=== PATIENT | male | born 1945 | race Caucasian/White ===

== ENCOUNTER → 2020-07-22 19:49 | Outpatient (ROUT) | payer BC, SELFPAY ==
[2020-07-22 20:31] LABS: Alanine Aminotransferase 29 IU/L (<50); Albumin 4.3 g/dL (3.5-5.0); Albumin Globulin Ratio 1.1 (1.0-2.8); Alkaline Phosphatase 163 U/L (38-126); Aspartate Aminotransferase 29 IU/L (17-59); BUN Creatinine Ratio 22.2 (6-22); Bilirubin Total 0.5 mg/dL (0.2-1.3); Blood Urea Nitrogen 14 mg/dL (9-20); Calcium 9.8 mg/dL (8.4-10.2); Carbon Dioxide 32 mmol/L (22-32); Chloride 99 mmol/L (98-107); Estimated Glomerular Filt Rate > 60.0 mL/min (>60); Globulin 3.9 g/dL (1.7-4.1); Glucose 91 mg/dL (80-110); HEMOLYSIS < 15 (0-50); Potassium 3.9 mmol/L (3.4-5.1); Sodium 139 mmol/L (137-145); Total Protein 8.2 g/dL (6.3-8.2)
[2020-07-22 20:37] LABS: Creatinine Urine Random 63.4 mg/dL; Sodium Urine Random 99 mmol/L (30-90)
[2020-07-22 20:42] LABS: Microalbumi Creatinin Ratio Ur 17.3 ug/mg CR (<30); Microalbumin Urine Random 1.1 mg/dL (0-1.6)
[2020-07-22 22:23] LABS: Hemoglobin A1C% w Est Avg Glu 8.2 % (4.0-6.0)
== END ==
PROVIDERS: Visit Provider Internal Medicine
DX: E11.9 Type 2 diabetes mellitus without complications (principal); E87.1 Hypo-osmolality and hyponatremia
CPT/HCPCS: 80053; 82043; 82570; 83036; 84300; 84681

== ENCOUNTER → 2020-12-02 18:46 | Outpatient (ROUT) | payer BC, SELFPAY ==
[2020-12-02 19:24] LABS: Hemoglobin A1C% w Est Avg Glu 6.1 % (4.0-6.0)
== END ==
PROVIDERS: Visit Provider Internal Medicine
DX: E11.9 Type 2 diabetes mellitus without complications (principal)
CPT/HCPCS: 83036

== ENCOUNTER 2025-04-10 08:31 | Inpatient (IN) | payer MEDICARE, BC, SELFPAY ==
[2025-04-10] VITALS (11 sets, daily range): BP systolic 128–151; BP diastolic 66–84; PULSE 91–113; RESP 9–20; TEMP 36.4–36.6; O2SAT 93–99; BMI 22.9
--- NOTE | 2025-04-10 08:41 | DI.RAD.S_ITS ---
PROCEDURE: XR HIP W PEL IF DONE LT 2V INDICATIONS: hip fracture suspected TECHNIQUE: AP pelvis with lateral view(s) of the left hip(s). COMPARISON: None. FINDINGS: Bones: Left femoral neck fracture with varus angulation. Pelvic ring appears intact. No suspicious bony lesions. Soft tissues: The visualized bowel gas pattern is normal. No suspicious soft tissue calcifications. IMPRESSION: Left femoral neck fracture with varus angulation. Dictated by: Juan F Wu M.D. on 04/10/2025 at 9:21 Approved by: Juan F Wu M.D. on 04/10/2025 at 9:21
--- NOTE | 2025-04-10 08:41 | DI.RAD.S_ITS ---
PROCEDURE: XR CHEST 1V INDICATIONS: preop TECHNIQUE: One view of the chest was acquired. COMPARISON: None. FINDINGS: Surgical changes and devices: CABG. Lungs and pleura: Minimal left basilar atelectasis versus scarring. No pleural effusions or pneumothorax. Mediastinum: Mediastinal contours appear normal. Heart size is normal. Bones and chest wall: No suspicious bony lesions. Overlying soft tissues appear unremarkable. IMPRESSION: Minimal left basilar atelectasis versus scarring. Dictated by: Juan F Wu M.D. on 04/10/2025 at 9:20 Approved by: Juan F Wu M.D. on 04/10/2025 at 9:21
--- NOTE | 2025-04-10 08:44 | ED.FALL ---
HPI - Fall General Chief Complaint: Trauma Stated Complaint: GLF, r/o L hip fx Time Seen by Provider: 04/10/25 08:35 History of Present Illness HPI Narrative: This is a 79-year-old man brought in by ambulance history is obtained from the patient and from EMS. Patient reportedly had a ground level fall in his driveway last night with subsequent left hip and left elbow pain. States that he was able to get up and back into the home with the assistance of his where he stayed overnight and then his called EMS in the morning because he had pain with movement of his left hip and could not ambulate. EMS noted shortening of the left lower extremity. The patient is not anticoagulated, he has past medical history including type 2 diabetes hypertension coronary artery disease and elevated cholesterol. He denies chest pain shortness of breath fevers or head injury. He does not have back pain. Past Surgical history includes coronary artery bypass grafting and cholecystectomy as well as hernia repair. Related Data Home Medications ?Medication ?Instructions ?Recorded ?Confirmed aspirin 81 mg tablet,delayed 81 mg PO DAILY 04/10/25 04/10/25 release (Daniel Low Dose Aspirin) atorvastatin 80 mg tablet 80 mg PO QPM 04/10/25 04/10/25 empagliflozin 25 mg-linagliptin 5 1 tab PO DAILY 04/10/25 04/10/25 mg tablet (Glyxambi) ferrous sulfate 28 mg iron tablet 18 mg PO 04/10/25 ketoconazole 2 % shampoo topical 04/10/25 ketoconazole 2 % topical cream applic topical DAILY 04/10/25 lisinopril 10 mg tablet 10 mg PO DAILY 04/10/25 04/10/25 metoclopramide HCl 10 mg tablet 10 mg PO DAILY 04/10/25 04/10/25 (Reglan) metoprolol succinate 25 mg 25 mg PO DAILY 04/10/25 04/10/25 tablet,extended release 24 hr pantoprazole 20 mg tablet,delayed 20 mg PO DAILY 04/10/25 04/10/25 release Allergies Allergy/AdvReac Type Severity Reaction Status Date / Time diazepam (From Valium) AdvReac Verified 04/10/25 08:46 latex AdvReac Verified 04/10/25 08:46 Exam Initial Vital Signs Initial Vital Signs: Vital Signs Temperature 97.5 F L 04/10/25 08:40 Pulse Rate 103 H 04/10/25 08:40 Respiratory Rate 20 04/10/25 08:40 Blood Pressure 136/78 04/10/25 08:40 Pulse Oximetry 97 04/10/25 08:40 Oxygen Delivery Method Room Air 04/10/25 08:40 vital signs are reviewed Const General: cooperative and No acute distress [facility] Head: normocephalic and atraumatic Face and sinus: face symmetric Mouth: moist mucous membranes Eyes Pupils: PERRL EOM: EOM intact bilaterally Neck Neck: supple Chest Chest: normal inspection of the chest Resp Effort & Inspection: normal respiratory effort and able to speak in complete sentences Auscultation: clear to auscultation bilaterally Cardio Rate: regular rate Rhythm: regular rhythm Heart Sounds: no murmurs GI Palpation: soft Neuro General: patient alert and patient oriented x3 Extrem Other: Shortening of the left lower extremity. Pulses are intact in the left foot. Has pain with any movement of the left lower extremity. There are abrasions to the left elbow, no deformity and full active range of motion. Course Course Course Narrative: Case discussed with hospitalist, Dr. Stone, admission is accepted at 10:05 a.m. orthopedics consult is pending Orders Ordered: ED Orders 04/10/25 08:41 XR chest 1V Stat XR hip w pel LT 2V Stat EKG-12 Lead Stat 04/10/25 08:47 XR elbow LT min 3V Stat 04/10/25 09:30 CBC Auto Diff [Complete Blood Count AUTO DIFF] Stat CMP [Comprehensive Metabolic Panel] Stat 04/10/25 09:40 Consult to Orthopedic Surgery Stat Acetaminophen (Acetaminophen 325 Mg Tablet) 650 mg PO Q6H PRN PRN Reason: Fever/Mild Pain (1-3) Aspirin (Aspirin Ec 81 Mg Tablet) 81 mg PO DAILY JEISON Atorvastatin Calcium (Atorvastatin 20 Mg Tablet) 80 mg PO QPM [facility] Heparin Sodium (Porcine) (Heparin 5,000 Unit/Ml Vial) 5,000 unit SUBCUT BID [facility] Hydromorphone HCl (Hydromorphone Hcl 0.5 Mg/0.5 Ml Syringe) 0.5 mg IV Q2H PRN PRN Reason: Pain, Severe (7-10) Sodium Chloride (Normal Saline 0.9%) 1,000 mls @ 100 mls/hr IV CONT JEISON Lisinopril (Lisinopril 10 Mg Tablet) 10 mg PO DAILY [facility] Metoprolol Succinate (Metoprolol Er 25 Mg Tablet) 25 mg PO DAILY [facility] Naloxone HCl (Naloxone 0.4 Mg/Ml Vial) 0.2 mg IV Q2MIN PRN PRN Reason: Opiate Reversal Ondansetron HCl (Ondansetron 4 Mg/2 Ml Inj) 4 mg IV Q8HR PRN PRN Reason: Nausea And Vomiting Pantoprazole Sodium (Pantoprazole Dr 20 Mg Tablet) 20 mg PO DAILY [facility] Discontinued Medications Hydromorphone HCl (Hydromorphone 1 Mg Inj) 0.5 mg IV NOW ONE Stop: 04/10/25 08:42 Last Admin: 04/10/25 09:48 Dose: 0.5 mg Documented By: CTS Ondansetron HCl (Ondansetron 4 Mg/2 Ml Inj) 4 mg IV NOW ONE Stop: 04/10/25 08:42 Last Admin: 04/10/25 09:48 Dose: 4 mg Documented By: JAIMIE Consultations Consultation #2: Discussed with orthopedics, Dr. Mcduffie's, we will consult Vital Signs Vital signs: Vital Signs - 8 hr 04/10/25 08:40 04/10/25 08:41 04/10/25 09:00 Temperature 97.5 F L Pulse Rate 103 H 103 H 97 H Respiratory Rate 20 17 Blood Pressure 136/78 Pulse Oximetry 97 98 93 Oxygen Delivery Method Room Air 04/10/25 09:30 04/10/25 10:00 Temperature Pulse Rate 99 H 91 H Respiratory Rate 16 11 L Blood Pressure Pulse Oximetry 95 99 Oxygen Delivery Method MDM - Fall Lab Data 04/10/25 09:30 04/10/25 09:30 Labs: Lab Results 04/10/25 Range/Units 09:30 WBC 14.9 H (4.5-11.0) X10^3/uL RBC 4.90 (4.5-5.9) X10^6/uL Hgb 14.2 (13.5-17.5) g/dL Hct 42.1 (41-53) % MCV 86.0 (80-100) fL MCH 28.9 (26-34) PG MCHC 33.7 (30-36) % RDW 14.5 (11.6-14.8) % Plt Count 228 (150-400) X10^3/uL Neut % (Auto) 86.7 H (50-75) % Lymph % (Auto) 7.4 L (25-40) % [place] % (Auto) 5.4 (3-14) % Eos % (Auto) 0.2 L (2-4) % Baso % (Auto) 0.3 (0-2) % Neut # (Auto) 38771 H (5006-7610) /uL Lymph # (Auto) 1100 (0996-8065) /uL [place] # (Auto) 800 (0-900) /uL Eos # (Auto) 0 (0-450) /uL Baso # (Auto) 0 (0-100) /uL Sodium 139 (137-145) mmol/L Potassium 4.3 (3.4-5.1) mmol/L Chloride 107 (98-107) mmol/L Carbon Dioxide 23 (22-32) mmol/L BUN 15 (9-20) mg/dL Creatinine 0.92 (0.66-1.25) mg/dL Estimated GFR > 60 (>60) mL/min BUN/Creatinine Ratio 16.3 (6-22) Glucose 157 H (70-99) mg/dL Calcium 9.2 (8.4-10.2) mg/dL Total Bilirubin 0.7 (0.2-1.3) mg/dL AST 32 (17-59) IU/L ALT 38 (<50) IU/L Alkaline Phosphatase 158 H (38-126) U/L Total Protein 7.7 (6.3-8.2) g/dL Albumin 4.1 (3.5-5.0) g/dL Globulin 3.6 (1.7-4.1) g/dL Albumin/Globulin Ratio 1.1 (1.0-2.8) Imaging Data Extremity x-ray #1: My Impression: Independently reviewed x-ray of left hip, no acute finding Radiologist's Impression: Radiology report reviewed, no acute Chest x-ray: My Impression: Independently reviewed chest x-ray, postoperative changes no acute findings Radiologist's Impression: Reviewed radiology report, minimal atelectasis at left base no acute findings AP pelvis and left hip: My Impression: AP pelvis and left hip x-ray shows left hip fracture and femoral neck Radiologist's Impression: [address] [address] XRay Report Signed Patient: Gonzalo Sullivan MR#: [id number] : 1945 Acct:[id number] Age/Sex: 79 / M Date of Service: 04/10/25 Loc: ED Accession Number: [id number] Procedure: XR hip w pel LT 2V Ordering Provider: Haris Ron MD PROCEDURE: XR HIP W PEL IF DONE LT 2V INDICATIONS: hip fracture suspected TECHNIQUE: AP pelvis with lateral view(s) of the left hip(s). COMPARISON: None. FINDINGS: Bones: Left femoral neck fracture with varus angulation. Pelvic ring appears intact. No suspicious bony lesions. Soft tissues: The visualized bowel gas pattern is normal. No suspicious soft tissue calcifications. IMPRESSION: Left femoral neck fracture with varus angulation. Dictated by: Juan F Wu M.D. on 04/10/2025 at 9:21 Approved by: Juan F Wu M.D. on 04/10/2025 at 9:21 ECG Data Attestation: I personally reviewed and interpreted this ECG as follows: (Normal sinus rhythm at [address] segment changes right bundle-branch block and left anterior fascicular block) Discharge Plan Departure Patient Disposition: Admitted As Inpatient Clinical Impression: Closed fracture of left hip Qualifiers: Encounter type: initial encounter Qualified Code(s): S72.002A - Fracture of unspecified part of neck of left femur, initial encounter for closed fracture Admit Date/Time: 04/10/25 10:02 Admit Provider: Suman Stone
--- NOTE | 2025-04-10 08:47 | DI.RAD.S_ITS ---
PROCEDURE: XR ELBOW LT MIN 3V INDICATIONS: elbow injury TECHNIQUE: 3 views of the elbow were acquired. COMPARISON: None. FINDINGS: Bones: No fractures or dislocations. No suspicious bony lesions. Soft tissues: No elbow joint effusion. No suspicious soft tissue calcifications. IMPRESSION: No acute bony abnormality or significant joint effusion. Dictated by: Juan F Wu M.D. on 04/10/2025 at 9:21 Approved by: Juan F Wu M.D. on 04/10/2025 at 9:22
--- NOTE | 2025-04-10 08:51 | EKG_ITS ---
[id number] [address] Test Date: 2025-04-10 Pat Name: Gonzalo Sullivan Department: Room: Gender: Male Burglar Alarm Inspector: TINARISTIDES : 1945 Requested By: Order Number: [id number] Reading MD: Suman Stone Measurements Intervals [place] Rate: 98 P: 71 NH: 188 QRS: -60 QRSD: 136 T: 67 QT: 380 QTc: 485 Interpretive Statements Normal sinus rhythm Right bundle branch block Left anterior fascicular block Bifascicular block Minimal voltage criteria for LVH, may be normal variant ( R in aVL ) Electronically Signed On 04-10-2025 15:06:20 PDT by Suman Stone
[2025-04-10 09:46] LABS: Add Manual Diff / Slide Review NO; Hematocrit 42.1 % (41-53); Hemoglobin 14.2 g/dL (13.5-17.5); Lymphocytes Absolute Auto 1100 /uL (1100-4500); Mean Corpuscular HGB Conc 33.7 % (30-36); Mean Corpuscular Hemoglobin 28.9 PG (26-34); Mean Corpuscular Volume 86.0 fL (80-100); Platelet Count 228 X10^3/uL (150-400)
[2025-04-10] MEDS: HYDROMORPHONE 1 MG INJ 0.5 MG IV (09:48)
[2025-04-10] MEDS: ONDANSETRON 4 MG/2 ML INJ IV (09:48)
[2025-04-10 10:10] LABS: Alanine Aminotransferase 38 IU/L (<50); Albumin 4.1 g/dL (3.5-5.0); Albumin Globulin Ratio 1.1 (1.0-2.8); Alkaline Phosphatase 158 U/L (38-126); Blood Urea Nitrogen 15 mg/dL (9-20); Calcium 9.2 mg/dL (8.4-10.2); Carbon Dioxide 23 mmol/L (22-32); Chloride 107 mmol/L (98-107); Estimated Glomerular Filt Rate > 60 mL/min (>60); Globulin 3.6 g/dL (1.7-4.1); Glucose 157 mg/dL (70-99); HEMOLYSIS < 15 (0-50); Potassium 4.3 mmol/L (3.4-5.1); Sodium 139 mmol/L (137-145); Total Protein 7.7 g/dL (6.3-8.2)
--- NOTE | 2025-04-10 11:00 | PM.HP.1 ---
History of Present Illness History of Present Illness Chief complaint: GLF, r/o L hip fx Narrative: The patient was a very pleasant 79-year-old male who had a ground level fall while trying to clean the windows of his [employer] truck. He sustained a hip fracture after falling as well as left arm elbow and wrist abrasions. He had no LOC. He has reasonable pain control with Dilaudid, which is given in the ED. Orthopedics was contacted we will consult regarding operative repair and internal fixation of this fracture. He was doing well otherwise. His pain control is good. His past medical history is also notable for CAD with a history of CABG, diabetes type 2, hypertension, CAD, and hyperlipidemia. He was and lives in [place]. His is with him. ON LICENSE OF [facility] Social History household members: spouse Smoking Status: Former smoker alcohol intake: current Meds Home Medications and Allergies Home Medications ?Medication ?Instructions ?Recorded ?Confirmed ?Type aspirin 81 mg tablet,delayed 81 mg PO DAILY 04/10/25 04/10/25 History release (Daniel Low Dose Aspirin) atorvastatin 80 mg tablet 80 mg PO QPM 04/10/25 04/10/25 History empagliflozin 25 mg-linagliptin 5 1 tab PO DAILY 04/10/25 04/10/25 History mg tablet (Glyxambi) ferrous sulfate 28 mg iron tablet 18 mg PO DAILY 04/10/25 04/10/25 History ketoconazole 2 % shampoo 1 applic topical Q14D 04/10/25 04/10/25 History ketoconazole 2 % topical cream 1 applic topical DAILY 04/10/25 04/10/25 History lisinopril 10 mg tablet 10 mg PO DAILY 04/10/25 04/10/25 History metoclopramide HCl 10 mg tablet 10 mg PO DAILY 04/10/25 04/10/25 History (Reglan) metoprolol succinate 25 mg 25 mg PO DAILY 04/10/25 04/10/25 History tablet,extended release 24 hr pantoprazole 20 mg tablet,delayed 20 mg PO DAILY 04/10/25 04/10/25 History release Allergies Allergy/AdvReac Type Severity Reaction Status Date / Time diazepam (From Valium) AdvReac Verified 04/10/25 08:46 latex AdvReac Verified 04/10/25 08:46 Review of Systems Review of Systems Narrative: All else reviewed and otherwise unremarkable except as noted in the history and physical. Exam Vital Signs (past 8 hours): - 04/10/25 08:40 04/10/25 08:41 04/10/25 09:00 Temperature 97.5 F L Pulse Rate 103 H 103 H 97 H Respiratory Rate 20 17 Blood Pressure 136/78 Pulse Oximetry 97 98 93 Oxygen Delivery Method Room Air 04/10/25 09:30 04/10/25 10:00 Temperature Pulse Rate 99 H 91 H Respiratory Rate 16 11 L Blood Pressure Pulse Oximetry 95 99 Oxygen Delivery Method Oxygen Delivery Method Room Air Narrative Exam Narrative: NAD, alert and oriented, fluent speech, calm. Normocephalic skull, EOMI, anicteric sclera, symmetric pupils. Oropharynx unremarkable, no droop. Neck supple, midline trachea, no adenopathy. Lungs clear, normal rate and effort. Heart regular, no murmur gallop or rub. Abdomen is soft, non distended and non tender. Extremities are free of edema. Skin is free of rash or lesions. Joints are not swollen or deformed. Judgment appears to be normal. Objective ECG Impression: ntervals [place] Rate: 98 P: 71 CT: 188 QRS: -60 QRSD: 136 T: 67 QT: 380 QTc: 485 Interpretive Statements Normal sinus rhythm Right bundle branch block Left anterior fascicular block Bifascicular block Minimal voltage criteria for LVH, may be normal variant ( R in aVL ) Imaging Multiple studies:: Radiologist's impression: Elbow x-ray: No acute bony abnormality or significant joint effusion. Hip x-ray: Left femoral neck fracture with varus angulation. Chest x-ray: Minimal left basilar atelectasis versus scarring. Labs 04/10/25 09:30 04/10/25 09:30 Labs: Laboratory Results - last 24 hr 04/10/25 09:30 WBC 14.9 H RBC 4.90 Hgb 14.2 Hct 42.1 MCV 86.0 MCH 28.9 MCHC 33.7 RDW 14.5 Plt Count 228 Neut % (Auto) 86.7 H Lymph % (Auto) 7.4 L [place] % (Auto) 5.4 Eos % (Auto) 0.2 L Baso % (Auto) 0.3 Neut # (Auto) 53843 H Lymph # (Auto) 1100 [place] # (Auto) 800 Eos # (Auto) 0 Baso # (Auto) 0 Sodium 139 Potassium 4.3 Chloride 107 Carbon Dioxide 23 BUN 15 Creatinine 0.92 Estimated GFR > 60 BUN/Creatinine Ratio 16.3 Glucose 157 H Calcium 9.2 Total Bilirubin 0.7 AST 32 ALT 38 Alkaline Phosphatase 158 H Total Protein 7.7 Albumin 4.1 Globulin 3.6 Albumin/Globulin Ratio 1.1 Assessment & Plan Assessment & Plan narrative: 1. GLF 2. Left femoral neck fracture, present on admission and active. 3. Left elbow and wrist abrasions and contusions, stable. 4. CAD with history of CABG, stable. 5. DM 2, stable. 6. HLD, stable. PLAN: -NPO, IV fluids. -ortho consult for operative repair. Unsure if this will be today or tomorrow. -monitor glucose, correctional lispro. -continue usual medications. Anticipate at least 2 midnights in the hospital, supports inpatient status. He was full resuscitation, confirmed time of admission. is proxy decision maker. Time-Based Coding :: 35 min spent with patient and on the chart (including review of chart, obtaining history, exam, reviewing outside data, placing orders, documenting exam and treatment plan, and counseling patient) on 04/10. Quality MIPS - Admit I confirm the patient?s Advance Care Plan is present, Code status is documented, Surrogate decision maker is in patient?s record [If Yes, STOP here]: Yes MIPS - Meds 'Current medications' to include all prescriptions, [id number] products, herbals, cannabis/cannabidiol products, and vitamin/mineral/dietary (nutritional) supplements. I have utilized all available resources to obtain, update, or review the patient?s current medications. [If Yes, STOP here]: Yes
[2025-04-10] MEDS: SODIUM CHLORIDE 0.9% 1,000 ML 100 ML IV (12:17)
[2025-04-10] MEDS: OXYCODONE IR 5 MG TABLET PO (12:53)
--- NOTE | 2025-04-10 15:08 | PM.HP.IH.1 ---
History of Present Illness History of Present Illness Date Patient Seen: 04/10/25 Chief complaint: GLF, r/o L hip fx Narrative: 79yo M with past medical history of hypertension, hypercholesteremia, CAD with history of CABG and type 2 diabetes presents to the emergency department for the 1st time with regards to his left hip pain. He reports that yesterday he was working on his car when he tripped over a stool and landed on his hip. He initially had to crawl back to the house but he eventually was able to get up and ambulate that day. Early this morning he woke up to use the restroom and he again fell however this time he was unable to get up and ambulate. He was brought to the emergency department where they obtained radiographs that demonstrated his left femoral neck fracture. Denies new numbness and tingling however he has a history of mild peripheral neuropathy. He also injured his left elbow and wrist. Prior to this fall he denied any hip pain. He had a walking tolerance of approximately half a mile. He did not require any ambulatory aids. He has a significant 60 pack year history. [facility] Social History household members: spouse Smoking Status: Former smoker alcohol intake: current Meds Home Medications and Allergies Home Medications ?Medication ?Instructions ?Recorded ?Confirmed ?Type aspirin 81 mg tablet,delayed 81 mg PO DAILY 04/10/25 04/10/25 History release (Daniel Low Dose Aspirin) atorvastatin 80 mg tablet 80 mg PO QPM 04/10/25 04/10/25 History empagliflozin 25 mg-linagliptin 5 1 tab PO DAILY 04/10/25 04/10/25 History mg tablet (Glyxambi) ferrous sulfate 28 mg iron tablet 18 mg PO DAILY 04/10/25 04/10/25 History ketoconazole 2 % shampoo 1 applic topical Q14D 04/10/25 04/10/25 History ketoconazole 2 % topical cream 1 applic topical DAILY 04/10/25 04/10/25 History lisinopril 10 mg tablet 10 mg PO DAILY 04/10/25 04/10/25 History metoclopramide HCl 10 mg tablet 10 mg PO DAILY 04/10/25 04/10/25 History (Reglan) metoprolol succinate 25 mg 25 mg PO DAILY 04/10/25 04/10/25 History tablet,extended release 24 hr pantoprazole 20 mg tablet,delayed 20 mg PO DAILY 04/10/25 04/10/25 History release Allergies Allergy/AdvReac Type Severity Reaction Status Date / Time diazepam (From Valium) AdvReac Verified 04/10/25 08:46 latex AdvReac Verified 04/10/25 08:46 Exam Vital Signs (past 8 hours): - 04/10/25 08:40 04/10/25 08:41 04/10/25 09:00 Temperature 97.5 F L Pulse Rate 103 H 103 H 97 H Respiratory Rate 20 17 Blood Pressure 136/78 Pulse Oximetry 97 98 93 Oxygen Delivery Method Room Air Oxygen Flow Rate 04/10/25 09:30 04/10/25 10:00 04/10/25 10:30 Temperature Pulse Rate 99 H 91 H 93 H Respiratory Rate 16 11 L 9 L Blood Pressure Pulse Oximetry 95 99 99 Oxygen Delivery Method Oxygen Flow Rate 04/10/25 11:00 04/10/25 11:20 Temperature 97.5 F L Pulse Rate 94 H 99 H Respiratory Rate 9 L 16 Blood Pressure 151/84 H Pulse Oximetry 99 97 Oxygen Delivery Method Oxygen Flow Rate 2.5 Oxygen Delivery Method Room Air Oxygen Flow Rate 2.5 Narrative Exam Narrative: Left Hip: Inspection: No erythema, swelling, bruising, atrophy. ROM deferred due to known fracture Neurovascular exam: Fires ta/gc/ehl; SILT s/s/sp/dp/t, 2+ dp Imaging: Radiographs of the left hip on April 10, 2020 5th: Displaced femoral neck fracture. Mild degenerative changes in the acetabulum. Objective Labs 04/10/25 09:30 04/10/25 09:30 Labs: Laboratory Results - last 24 hr 04/10/25 04/10/25 09:30 11:41 WBC 14.9 H RBC 4.90 Hgb 14.2 Hct 42.1 MCV 86.0 MCH 28.9 MCHC 33.7 RDW 14.5 Plt Count 228 Neut % (Auto) 86.7 H Lymph % (Auto) 7.4 L [place] % (Auto) 5.4 Eos % (Auto) 0.2 L Baso % (Auto) 0.3 Neut # (Auto) 59000 H Lymph # (Auto) 1100 [place] # (Auto) 800 Eos # (Auto) 0 Baso # (Auto) 0 Sodium 139 Potassium 4.3 Chloride 107 Carbon Dioxide 23 BUN 15 Creatinine 0.92 Estimated GFR > 60 BUN/Creatinine Ratio 16.3 Glucose 157 H POC Whole Bld Glucose 133 H Calcium 9.2 Total Bilirubin 0.7 AST 32 ALT 38 Alkaline Phosphatase 158 H Total Protein 7.7 Albumin 4.1 Globulin 3.6 Albumin/Globulin Ratio 1.1 Assessment & Plan Assessment & Plan narrative: 79 yo M presents with history, physical exam and imaging findings consistent with a left femoral neck fracture. I had a long conversation with the patient and his about treatment options. I explained that we could address this fracture with either a hemiarthroplasty versus a total hip arthroplasty. We discussed the pluses and minuses of each and they elected for him to pursue a hemiarthroplasty. The risks, benefits and alternatives of the procedure were discussed with the patient to include bleeding, infection, damage to surrounding structures, ongoing pain, loss of range of motion, hip dislocation, need for additional surgeries and anesthesia risks such as heart attack, stroke and . Patient understood these risks and wanted move forward with the procedure. He was consented for operative fixation of the left hip femoral neck fracture. We plan to go to the operating room tomorrow. Admission to hospitalist -appreciate their assistance with this patient NPO at midnight Plan for OR on April 11, 2025 around 1:00 p.m. Nonweightbearing left lower extremity Start DVT prophylaxis the day after the surgery Clayton Juarez MD Ortho [phone] cell Time-Based Coding :: [TOTAL MINUTES] spent with patient and on the chart (including review of chart, obtaining history, exam, reviewing outside data, placing orders, documenting exam and treatment plan, and counseling patient) on [DATE]. [employer]EE [employer] Tender Helper Document charge(s): Yes
[2025-04-10] MEDS: OXYCODONE IR 10 MG TABLET PO (20:08)
[2025-04-11] VITALS (21 sets, daily range): BP systolic 95–153; BP diastolic 54–84; PULSE 91–116; RESP 11–25; TEMP 36.2–37.2; O2SAT 92–100; BMI 22.9
[2025-04-11] MEDS: OXYCODONE IR 10 MG TABLET PO (05:35)
[2025-04-11] MEDS: EMPAGLIFLOZIN LINAGLIPTIN 1 EACH PO (05:38)
[2025-04-11] MEDS: SODIUM CHLORIDE 0.9% 1,000 ML 100 ML IV (06:10)
[2025-04-11 06:23] LABS: Add Manual Diff / Slide Review NO; Hematocrit 42.6 % (41-53); Hemoglobin 14.1 g/dL (13.5-17.5); Lymphocytes Absolute Auto 1600 /uL (1100-4500); Mean Corpuscular HGB Conc 33.0 % (30-36); Mean Corpuscular Hemoglobin 29.1 PG (26-34); Mean Corpuscular Volume 88.0 fL (80-100); Platelet Count 211 X10^3/uL (150-400)
[2025-04-11 06:30] LABS: Blood Urea Nitrogen 15 mg/dL (9-20); Calcium 9.0 mg/dL (8.4-10.2); Carbon Dioxide 27 mmol/L (22-32); Chloride 106 mmol/L (98-107); Estimated Glomerular Filt Rate > 60 mL/min (>60); Glucose 117 mg/dL (70-99); HEMOLYSIS < 15 (0-50); Potassium 4.3 mmol/L (3.4-5.1); Sodium 140 mmol/L (137-145)
[2025-04-11] MEDS: HEPARIN 5,000 UNIT/ML VIAL 5000 UNIT SUBCUT ×2 (08:42→22:13)
[2025-04-11] MEDS: LACTATED RINGERS 1,000 ML 42 ML IV ×3 (13:25→21:12)
--- NOTE | 2025-04-11 13:37 | PM.PREOP ---
Pre-operative Note Interval Note History & Physical reviewed/Exam performed by Physician: Yes Changes to H&P: No
[2025-04-11] MEDS: FAMOTIDINE 20 MG/2 ML VIAL IV (13:40)
[2025-04-11] MEDS: CEFAZOLIN 2 GM/100 ML PREMIX 100 ML IV (13:50)
--- NOTE | 2025-04-11 14:13 | CM.DANOTE ---
Initial DCP Assessment Visit Note Reviewed EMR and team rounds for pt's medical status and updates. This ORDER EXPEDITER was unable to meet with pt at bedside due to pt being in surgery at the time of this visit. Pt lives modified ind. in his own home with his spouse in [place]. Pt will likely need SNF rehab at time of d/c, PT/OT evals and recs are pending. Will send referral and coordinate for SNF at d/c once pt has been further evaluated after his surgery. Payor: Medicare PCP: Dr. Juarez Attending: Dr. Roy Pt is a 79 year-old M who presented to the ED via EMS yesterday following a GLF in his drivewaythe day before. He was able to get back into the house that evening, however by yesterday morning he woke up and was unable to ambulate. X-ray of his hip in the ED showed a L-hip fracture. Ortho was consulted, and the plan was made to admit and complete surgery (today). DCP will continue to monitor for final recs and any further evolving needs prior to d/c. Discharge Planning/Care Management CM Discharge Assessment Start: 04/10/25 10:06 Freq: Status: Active Protocol: Document 04/11/25 14:08 DPL (Rec: 04/11/25 14:11 DPL [email or web address]) Discharge Planning Assessment Assigned Discharge CHEY Darden Intelligence Agent Advance Directives? No History Provided By Medical Record Expected Length of 3 Stay Has Patient been No admitted in last 30 days? Prior Living House Arrangements Household Members spouse Comment Information not available at time of this assessment. Patient/Family [facility] Facility Preference Barriers to No Discharge Discharge Plan [facility] Facility Transportation Facility Arrangement Referrals Initiated [facility] If patient plan is No SNF: Has PASSR been completed? Has Agency SNF been No contacted Whiteboard Updated Yes in Patient Room with name and ext. # of Electric Locomotive Firer/Fireman Review Status In Process Please Provide Date 04/11/25 Initial DC Assessment Was Performed
--- NOTE | 2025-04-11 14:44 | SUR.OPER ---
Lateral on padded OR bed. Gel axillary roll. Arms secured on padded armboard with pillow supporting top arm. Padded hip positioner braces x4 - anterior and posterior chest and pelvis. Additional gel pad used anterior pelvis. Gel pad under bottom leg from knee to foot and secured with tape over sheet. Dr. Juarez in room at time of positioning with Dr. Hall, all pressure points padded and position approved
[2025-04-11] MEDS: BUPIVACAINE 0.25% W/ EPI 30 ML VIAL 60 ML INJ (14:54)
[2025-04-11] MEDS: BUPIVACAINE LIPOSOME 266 MG/20 ML VIAL INJ (14:57)
--- NOTE | 2025-04-11 16:16 | PM.PN.1 ---
Subjective Subjective Date Patient Seen: 04/11/25 Interval history: Chief complaint: Left hip pain secondary to ground level fall with left hip fracture History of present illness: 04/10: 79-year-old male who had a ground level fall while trying to clean the windows of his [email or web address] truck. He sustained a hip fracture after falling as well as left arm elbow and wrist abrasions. He had no LOC. He has reasonable pain control with Dilaudid, which is given in the ED. Orthopedics was contacted we will consult regarding operative repair and internal fixation of this fracture. He was doing well otherwise. His pain control is good. His past medical history is also notable for CAD with a history of CABG, diabetes type 2, hypertension, CAD, and hyperlipidemia. He was and lives in [place]. His is with him. Hospital course: 04/11: No fevers or chills overnight no chest pains hip pain is satisfactory controlled prior to surgery there are no prohibitive conditions or findings for surgical repair Review of systems: No fever or chills No chest pain palpitations wheezing shortness for breath No nausea vomiting diarrhea No neurologic symptoms Physical exam: Elderly male alert cogent no acute distress HEENT unremarkable No JVD Heart rate and rhythm regular Abdomen nontender Good capillary refill and pulses of the feet bilaterally Assessment and plan: Ground level slip and fall with left femoral neck fracture Benefits far outweigh risks of going for surgery for both morbidity and survival Follow up with the PCP for possible osteopenia versus osteoporosis long-term management DVT prophylaxis per Orthopedic surgery stewardship Chronic coronary artery disease with history of CABG Continue all core measures following surgery Type 2 diabetes: Sliding scale insulin as needed for hypoglycemia while hospitalized DVT prophylaxis: Per Orthopedic surgery stewardship Code status: Full code blue 35 minutes were required in evaluation management of this patient including patient evaluation directly in person [id number] review of history and laboratory findings Exam Vital Signs (past 8 hours): - 04/11/25 08:30 04/11/25 10:45 04/11/25 12:13 Temperature 98.5 F 98.7 F Pulse Rate 107 H 107 H Respiratory Rate 16 16 Blood Pressure 126/73 145/82 H Pulse Oximetry 94 94 95 Oxygen Delivery Method Nasal Cannula Oxygen Flow Rate 1 2 1 04/11/25 13:24 04/11/25 13:30 Temperature 98.1 F Pulse Rate 110 H 110 H Respiratory Rate 20 Blood Pressure 154/92 H 153/82 H Pulse Oximetry 94 Oxygen Delivery Method Room Air Oxygen Flow Rate Oxygen Delivery Method Room Air Oxygen Flow Rate 1 Objective Labs 04/11/25 05:50 04/11/25 05:50 Labs: Laboratory Results - last 24 hr 04/10/25 04/10/25 04/11/25 16:29 19:50 05:50 WBC 12.4 H RBC 4.84 Hgb 14.1 Hct 42.6 MCV 88.0 MCH 29.1 MCHC 33.0 RDW 14.9 H Plt Count 211 Neut % (Auto) 77.1 H Lymph % (Auto) 13.0 L Pershing % (Auto) 7.0 Eos % (Auto) 2.5 Baso % (Auto) 0.4 Neut # (Auto) 9500 H Lymph # (Auto) 1600 Pershing # (Auto) 900 Eos # (Auto) 300 Baso # (Auto) 100 Sodium 140 Potassium 4.3 Chloride 106 Carbon Dioxide 27 BUN 15 Creatinine 0.95 Estimated GFR > 60 BUN/Creatinine Ratio 15.8 Glucose 117 H POC Whole Bld Glucose 115 H 121 H Calcium 9.0 04/11/25 04/11/25 04/11/25 07:27 11:54 13:25 WBC RBC Hgb Hct MCV MCH MCHC RDW Plt Count Neut % (Auto) Lymph % (Auto) Pershing % (Auto) Eos % (Auto) Baso % (Auto) Neut # (Auto) Lymph # (Auto) Pershing # (Auto) Eos # (Auto) Baso # (Auto) Sodium Potassium Chloride Carbon Dioxide BUN Creatinine Estimated GFR BUN/Creatinine Ratio Glucose POC Whole Bld Glucose 106 H 84 77 Calcium [facility] Social History household members: spouse Smoking Status: Former smoker alcohol intake: current Assessment & Plan Time-Based Coding :: [TOTAL MINUTES] spent with patient and on the chart (including review of chart, obtaining history, exam, reviewing outside data, placing orders, documenting exam and treatment plan, and counseling patient) on [DATE].
--- NOTE | 2025-04-11 16:29 | DI.RAD.S_ITS ---
PROCEDURE: XR PELVIS 1-2V INDICATIONS: POST OP TECHNIQUE: 1 view of the lower pelvis acquired. COMPARISON: [facility], CR, XR HIP W PEL LT 2V, 04/10/2025, 8:42. FINDINGS: Bones: Patient is status post left hip arthroplasty, with hardware components in expected positions. The hip joint appears congruent. The visualized bony structures appear intact. Soft tissues: Overlying postoperative changes are noted. No suspicious soft tissue densities. IMPRESSION: Expected post-operative appearance of a hip arthroplasty. Dictated by: Marija Domínguez M.D. on 04/11/2025 at 17:30 Approved by: Marija Domínguez M.D. on 04/11/2025 at 17:30
--- NOTE | 2025-04-11 16:47 | PM.OP.1 ---
Operative Date/Time/Diagnoses Date of procedure: 04/11/25 Time of procedure: 16:49 Pre-op diagnosis: LEFT Femoral Neck Fracture Post-op diagnosis: same Procedure & Clinicians Procedure: LEFT Hip Hemiarthroplasty Same procedure(s) as scheduled: Yes Indications: Displaced LEFT Hip Fracture Surgeon: Clayton Juarez Audio Visual Equipment Rental Clerk: Natasha Hall Click Yes if Unassisted: No Anesthesia Type: General Operative Notes Findings: Displaced Femoral Neck Fracture Closure Type: primary Specimen(s): none sent Applied: none Estimated Blood Loss (mL): 100 Blood products transfused: none Procedure in detail: Op Note Date of Procedure: April 11, 2025 Pre-Op Diagnosis: Left Closed, displaced femoral neck fracture Post-Op Diagnosis: Left Closed, displaced femoral neck fracture Procedure: Left Yusuf Hip Arthroplasty Surgeon: Clayton Juarez MD Co-Surgeon: Natasha Hall DO Co-SUrgeon was used throughout the entirety of the case. ?This operation could not have been safely performed (without compromising the technical results or length of the procedure) without the assistance of a skilled salesperson surgical appliances. A salesperson surgical appliances was medically necessary for room set up, patient positioning, draping, retraction, visualization, reduction, fixation and closure. ?They were essential ?for the success of the case. Anesthesia Type: General EBL: 100cc Urine Output : N/A Specimens Removed: None Complications:None Implants/Grafts: Acuña&Nephew Tandem Unipolar 51mm +0 Acuña&Nephew Synergy Cemented Stem Size 13 Acuña&Nephew Distal Post Centralizer Drains: No lines, drains, or airways are recorded for this episode. Findings: Displaced left femoral neck fracture Narrative: The patient was taken to the OR and administered anesthetic and preoperative antibiotics. They were placed in the lateral position with axillary roll placed and padding under and in between the legs. SCD device placed on the nonoperative leg. Standard prep and drape was done and groin isolation drape placed. Timeout procedure performed. Posterior approach to the hip was used. Incision was made centered over the greater trochanter proximally 10 cm in length. Incision carried down through skin and subcutaneous fat to the fascia serafin. Hemostasis achieved. Fascia serafin opened gluteus muscle divided. Charnley retractor placed. Capsule and external rotators were removed from the posterior femur in an L-shaped fashion as a single layer and tagged with a #2 Fiberwire suture in the external rotators. Femoral neck cut was then made 1 cm above the lesser trochanter and fragments removed. The head fragment removed with a corkscrew and measured to be 51 mm. Acetabulum was cleared of any bony debris. Posterior capsule was removed from the inner aspect of the greater trochanter and preserved as a superior flap for later repair. Box osteotome initially used followed by canal finder and lateralizing reamer. Broaching of the canal was done after suctioning the canal. Size 13 broach had excellent fit with axial and rotational stability. Trialing was done with proper head size and size +0 spacer provided excellent stability with full extension and external rotation and internal rotation, hip flexion to greater than 70?. Leg lengths appeared appropriate at the knees and heel. Trials were removed and irrigation and suctioning was done. Final stem was tapped into place, trunnion cleaned and dried after repeat trialing. Final monopolar head and spacer tapped into place and hip reduced. Posterior capsule closed with #2 fiberwire sutures. External rotators close to the posterior inner aspect of the greater trochanter through 2 drill holes pulling the previously placed tagging sutures through and tying a knot. Fascia serafin closed with Stratafix. Skin closed with 2-0 Vicryl and александр in skin. Sterile dressing placed. Patient transferred to recovery room in stable condition. Plan: Weightbearing as tolerated on extremity. Posterior hip precautions. Follow-up in 2 weeks for wound check and staple removal. DVT prophylaxis Physical therapy. Clayton Juarez MD Complications: none Post-operative Condition: stable Disposition: PACU
--- NOTE | 2025-04-11 17:18 | SUR.PHASEI ---
Called report to Janeth RICHTER who will be assuming care of pt on acute care unit. Pt currently with HR 101, denies pain/nausea but still sleepy. Questions answered, reviewed meds given in OR/PACU.
--- NOTE | 2025-04-11 17:46 | PC.NURSE ---
Assumed care of patient from PACU. Aquacell dressing on posterior R hip CDI. CMS intact. Pt very groggy, keeps taking off NC and SpO2 monitor, but easily roused and redirectable. 3L SpO2, satting 94%. HR 108, other VSWNL. MD aware. No pain complaints. Bed low/locked, call light within reach, spouse at bedside, plan of care continues.
[2025-04-11] MEDS: METOPROLOL ER 25 MG TABLET PO (22:10)
[2025-04-11] MEDS: ATORVASTATIN 20 MG TABLET 80 MG PO (22:10)
[2025-04-11] MEDS: ASPIRIN EC 81 MG TABLET PO (22:14)
[2025-04-11] MEDS: PANTOPRAZOLE DR 20 MG TABLET PO (22:15)
[2025-04-12 06:00] VITALS: BP 147/77; PULSE 93; RESP 16; TEMP 36.6; O2SAT 97
[2025-04-12] MEDS: EMPAGLIFLOZIN LINAGLIPTIN 1 EACH PO (06:02)
[2025-04-12 06:25] LABS: Blood Urea Nitrogen 23 mg/dL (9-20); Calcium 8.6 mg/dL (8.4-10.2); Carbon Dioxide 21 mmol/L (22-32); Chloride 104 mmol/L (98-107); Estimated Glomerular Filt Rate > 60 mL/min (>60); Glucose 111 mg/dL (70-99); HEMOLYSIS 34 (0-50); Potassium 4.8 mmol/L (3.4-5.1); Sodium 133 mmol/L (137-145)
[2025-04-12 06:30] LABS: Add Manual Diff / Slide Review NO; Hematocrit 40.6 % (41-53); Hemoglobin 13.2 g/dL (13.5-17.5); Lymphocytes Absolute Auto 1300 /uL (1100-4500); Mean Corpuscular HGB Conc 32.5 % (30-36); Mean Corpuscular Hemoglobin 28.4 PG (26-34); Mean Corpuscular Volume 87.5 fL (80-100); Platelet Count 190 X10^3/uL (150-400)
--- NOTE | 2025-04-12 06:59 | PC.NURSE ---
Patient required increased oxygen through the night. Increased to 10L O2 via NC. LS clear, diminished. Dr. Perez notified.
[2025-04-12] MEDS: ACETAMINOPHEN 325 MG TABLET 650 MG PO ×2 (08:40→20:14)
[2025-04-12] MEDS: FERROUS SULFATE 325 MG TABLET PO (08:41)
[2025-04-12] MEDS: HEPARIN 5,000 UNIT/ML VIAL 5000 UNIT SUBCUT ×2 (08:41→20:09)
[2025-04-12 09:21] VITALS: BP 130/73; PULSE 97; RESP 16; TEMP 36.6; O2SAT 92
--- NOTE | 2025-04-12 10:35 | PT.IIE ---
Current Diagnoses Fracture of unspecified part of neck of left femur, initial encounter for closed fracture (04/10/25) Surgery Performed Operation Date: 04/11/25 13:30 Actual Procedures p Hip Hemiarthroplasty(Left) - Clayton Juarez MD Physical Therapy Inpatient Evaluation/Re-Eval M1 PT/OT-IP Prior Functional Status Start: 04/12/25 12:48 Freq: NEEDED Status: Active Protocol: Document 04/12/25 12:48 AB (Rec: 04/12/25 13:06 AB [id number]) Medical Review Prior Functional Status Medical History Yes Reviewed Communication able to make needs known Mobility and Gait pt stated that he was independent with all mobilities and ambulation without AD Social History Household Members spouse Living Arrangements House Number of Floors ( Two Floors Floors) Number of Stairs To pt plans to stay on main level of the house Enter/Railing? 1 step to enter Home Environment Standard Height Toilet,Tub/Shower Home Equipment Hand Held Shower Additional Social pt has a recliner at home History Comment pt spouse with recent fall and had a L wrist fx; pt stated that spouse was an ortho nurse and can assist him M2 PT-IP Current Condition Start: 04/12/25 12:48 Freq: NEEDED Status: Active Protocol: Document 04/12/25 12:48 AB (Rec: 04/12/25 13:06 AB [id number]) Physical Therapy Current Condition Current Condition Evaluation Date 04/12/25 Treatment Diagnosis GLF; s/p L hip hemiarthroplasty; difficulty in walking Onset Date 04/10/25 M3 PT-IP Subjective Start: 04/12/25 12:48 Freq: NEEDED Status: Active Protocol: Document 04/12/25 12:48 AB (Rec: 04/12/25 13:06 AB [id number]) Therapy Pain Assessment Pain When Pain Assessed At Rest Pain Present Pain Present Pain Reported Location Left Hip Intensity 2 Scale Used Numeric (0 - 10) M4 PT-IP Mobility and Gait Start: 04/12/25 12:48 Freq: NEEDED Status: Active Protocol: Document 04/12/25 12:48 AB (Rec: 04/12/25 13:06 AB [id number]) PT-Bed Mobility Assessment Supine to Sit Supine to Sit Maximum Assistance PT-Transfer Assessment Sit to and From Stand Sit to and from Moderate Assistance,Maximum Assistance,1 Person Stand Assistance,Use of Upper Extremities Equipment Transfer Assistive Gait Belt,Front Wheeled Walker Device Orthotic/Prosthetic No Devices or Brace: Transfers Transfer Destination Chair Transfer Technique ambulated Transfer Ability Level of Assist Minimal Assistance,1 Person Assistance,Use of Upper Extremities Comments Mobility Comments pt in bed and agreeable to do PT. obtained PLOF and home setup. post-op folder provided to pt. pt educated on L hip posterior precautions. Clarified with Dr. Mcduffie and no hip flexion >90 deg, no adduction and no IR. BP in supine: 142/72 . pt completed supine to sit max A and max cues. able to sit on EOB CGA. BP in sittin/75. required increase time to complete all tasks and max cues for hip precautions. sit to stand from EOB mod to max A and max cues. pt ambulated towards the chair using fWW min A and max cues. max A for controlled descent to chair. positioned pt on the chair . Left pt with OT. informed pt regarding SNF rehab and pt stated that he wants to avoid going to SNF. Gait Assessment Gait Gait Assistance Minimum Assistance Required: Distance (Feet) 12 Able to Maintain Yes Weight Bearing Status During Gait Assistive Devices Assistive Device Gait Belt,Front Wheeled Walker Orthotic/Prosthetic No Devices or Brace: Gait Deviations General Gait Pattern Antalgic,Decreased Stride Length,Decreased Feet Clearance Factors Limiting Gait Function Factors Limiting Decreased Activity Tolerance,Decreased Sensation, Gait Function Decreased Strength,Difficulty Following Directions, Limited Range of Motion,Pain,Poor Balance,Poor Safety Awareness PT-Balance Assessment Sitting Balance and Reactions Static Sitting Normal Balance Ability Dynamic Sitting Good Balance Ability Standing Balance and Reactions Static Standing Fair Balance Ability Dynamic Standing Fair Balance Ability Device Used FWW M5 PT-IP Objective Assessments Start: 04/12/25 12:48 Freq: NEEDED Status: Active Protocol: Document 04/12/25 12:48 AB (Rec: 04/12/25 13:06 AB [id number]) Orientation Orientation/Cognition Level of Alertness Alert Orientation Name,Place,Situation Language Function Hard of Hearing Ability Safety Awareness Decreased Safety Awareness Memory Description No Deficits Noted Gross Range of Motion Lower Extremity ROM Assessment Within Functional Limits Strength Lower Extremity Strength Assessment Left Impaired Hip 3-/5 Knee 3+/5 Sensation Assessment Sensation Gross Sensation Right LE Impaired,Left LE Impaired Sensation Numbness Description Comments Sensation Comments B feet numbness: chronic Muscle Tone Muscle Tone WNL Yes M6 PT-IP Treatment Start: 04/12/25 12:48 Freq: NEEDED Status: Active Protocol: Document 04/12/25 12:48 AB (Rec: 04/12/25 13:06 AB [id number]) Physical Therapy Treatment Exercises Exercises Heel Slides Education Education Provided Precautions,Weight Bearing Status,Post-Op Packet,Safety M7 PT-IP Assessment and Plan Start: 04/12/25 12:48 Freq: NEEDED Status: Active Protocol: Document 04/12/25 12:48 AB (Rec: 04/12/25 13:06 [id number]) PT Summary Assessment and Plan Potential Rehabilitation Fair Potential Status of Condition Evolving at Evaluation Summary Impairments Pain,ROM,Strength,Balance,Coordination,Sensation,Tone, Cognition,Bed Mobility,Transfers,Gait,Activity Tolerance Assessment Summary pt is a 79 y/o M who had a GLF and sustain a L hip fx. pt underwent L hip hemiarthroplasty POD 1 and has posterior hip precautions and is WBAT. pt requiring max A with bed mobility, mod to max A for sit<>stand and min A for ambulation using FWW and unable to tolerate much activity. pt will require 24/7 assist and will benefit from SNF rehab. pt stated that his spouse will be able to assist him but spouse had a fall and has L wrist fx limiting ability to assist pt. will continue to assess progress. Goals Bed Mobility Goal Minimal Assistance Transfer Goal Minimal Assistance,Front Wheeled Walker Gait Goal Contact Guard Assistance,Front Wheel Walker Gait Distance 100 Other Goals improve bed mobility, transfers, ambulation using fWW ~ 150 ft SBA up/down 1 step using fWW SBA Days to Meet Goals 10 Frequency of Treatment Other frequency 1-2x/day Treatment Plan Physical Therapy Bed Mobility Training,Transfer Training,Gait Training, Treatment Plan Therapeutic Exercise,Balance Retraining,Post Op Education,Discharge Planning,Hot or Cold Pack, Neuromuscular Re-ed,Coordination Retraining,Manual Therapy Precautions Posterior Hip No Hip Flexion > 90 degrees,No Hip Internal Rotation,No Precautions Hip Adduction Weight Bearing Status Weight Bearing Weight Bear as Tolerated Status Allowed Weight LLE WBAT Bearing Amount ( enter % or #) (%) Recommendations To Nursing Amount of Assist 2 Person Assist Needed Discharge Recommendations PT Discharge Home with 24/7 Assist Available,Home Health,SNF Rehab, Recommendations Home vs SNF Equipment Needed for FWW Home Before Discharge Transportation Needs Private Vehicle,Wheelchair/Cabulance at Discharge - PT assist 1
--- NOTE | 2025-04-12 11:13 | CM.DPNOTE ---
DCP Continued: Reviewed EMR and team rounds for pt?s medical status. Per hospitalist, disposition pending PT/OT evaluation and recommendation. DCP met with pt and spouse in room, introduced self and role. DCP discussed pending PT/OT recommendations after eval later this morning. Pt and state preference for discharge home tomorrow, 04/13 with home health, confirmed three times they do not want any referrals to SNF at this time. It is noted that pt's had a fall yesterday and arm is in sling, she states their daughter is local and can transport when ready and feel they can manage pt recovery at home. DCP provided Medicare Choice list for home health agencies, pt and will review after PT/OT recs identified. Plan: Anticipating dc home with family on 04/13 or when medically cleared. CM Team will continue to follow for coordination of discharge plans/possible home health referral. HARISH Arias
--- NOTE | 2025-04-12 11:32 | OT.IP.EVAL ---
Current Diagnoses Fracture of unspecified part of neck of left femur, initial encounter for closed fracture (04/10/25) Surgery Performed Operation Date: 04/11/25 13:30 Actual Procedures p Hip Hemiarthroplasty(Left) - Clayton Juarez MD Occupational Therapy Inpatient Evaluation/Re-Eval M2 OT-IP Current Condition Start: 04/12/25 12:41 Freq: Status: Active Protocol: Document 04/12/25 12:42 [facility] (Rec: 04/12/25 13:00 [facility] Desktop) Occupational Therapy Current Condition Current Condition Evaluation Date 04/12/25 Treatment Diagnosis Left Femoral Neck Fracture, S/P Left hemiarthroplasty Diagnosis Onset Date 04/10/25 Post Operative Precautions Posterior Hip No Hip Flexion > 90 degrees,No Hip Internal Rotation,No Precautions Hip Adduction Weight Bearing Status Weight Bearing Weight Bear as Tolerated Status M3 OT- IP Subjective and Pain Start: 04/12/25 12:41 Freq: Status: Active Protocol: Document 04/12/25 12:42 [facility] (Rec: 04/12/25 13:00 [facility] Desktop) OT- Subjective Occupational Therapy Visit Type Type Initial Evaluation Visit Start Time 10:38 Visit Stop Time 11:32 Occupational Therapy Visit Comments Patient Comments Pt agreed to get up. Pt's surgeon came in to see pt to clarify no bending to 90 degrees. Patient/Caregiver TO go home. Goals OT Pain Assessment Pain When Pain Assessed During Mobility Pain Present Pain Present Pain Reported Location Left Hip Intensity 1 M4 OT- IP ADL's Start: 04/12/25 12:41 Freq: Status: Active Protocol: Document 04/12/25 12:42 [facility] (Rec: 04/12/25 13:00 [facility] Desktop) OT [id number] General Evaluation Self-Feeding Ability Independent OT ADL-Grooming Comments OT Grooming Comments Not performed. OT ADL-Oral Care Comments Oral Care Comments Not performed. OT ADL-Dressing General Eval Lower Body Dressing Maximum Assistance Ability Comments OT Dressing Comments Able to practice use of LB dressing equipment. Educated to dress the LLE first and take out last. OT ADL-Toileting Comments OT Toileting Pt not having to go. Would benefit from BSC to increase Comments ease to get up after toileting. Pt states does not wear underwear at home. USe of urinal at night may be helpful as well. OT ADL-Bathing Comments OT Bathing Comments Pt will benefit from tub bench. Pt states to just sponge off initially. M5 OT- IP IADL's Start: 04/12/25 12:41 Freq: Status: Active Protocol: Document 04/12/25 12:42 [facility] (Rec: 04/12/25 13:00 [facility] Desktop) OT-Instrumental Activities of Daily Living Home Safety Awareness Awareness of Need Decreased Awareness for Assistance at Home Home Safety Comments Pt is insistent that he will be fine at home and insists that his can assist. Pt's fell last night and injured her wrist. Meal Preparation Meal Preparation Caregiver Provides Assist Sales Architect Sales Architect Pt will need assist. Comments M6 OT- IP Functional Cognition Start: 04/12/25 12:41 Freq: Status: Active Protocol: Document 04/12/25 12:42 [facility] (Rec: 04/12/25 13:00 [facility] Desktop) Cognitive Factors Limiting Selfcare Function Cognitive Ability Level of Alertness Alert Patient Orientation Name,Place,Situation Attention Span Capable of Focused Attention,Capable of Sustained Ability Attention Ability to Follow Able to Follow One Step Commands Commands Safety Awareness Decreased Ability to Apply Precautions,Underestimates Need for Assistance Cognitive Comments Cognitive Assessment Pt needing vc to incorporate his hip precautions that Comments he just learned today. Pt needing safety cues for FWW use as pt tend to crowd too close to the FWW. OT- Vision and Hearing OT- Hearing Assessment OT- Hearing WFL Assessment OT- Vision Assessment Visual Acuity Glasses All The Time Visual Attentiveness WFL Occular Pursuits WFL M7 OT- IP Mobility and Balance Start: 04/12/25 12:41 Freq: Status: Active Protocol: Document 04/12/25 12:42 [facility] (Rec: 04/12/25 13:00 [facility] Desktop) OT- Bed Mobility Assessment Supine to Sit Supine to Sit Assist Maximum Assistance OT-Transfer Assessment Sit to and From Stand Sit to and from Moderate Assistance,Maximum Assistance Stand Technique Transfer Destination Bed,Chair Transfer Technique Stand Step Pivot Devices Transfer Assistive Gait Belt,Front Wheeled Walker Devices Comments Mobility Comments MAXA X to assist to get his trunk upright . MAX/MODA to stand and MAX A to help lower down to the recliner. Pt once on his feet ZAIRA with FWW to take a few steps around the bed. BP /72, sitting 135/75, after walking around the bed 122/74, sitting 119/64 and 114/68- pt not symptomatic for having drop in bp. OT- Balance Assessment Sitting Balance and Reactions Static Sitting Good Balance Ability Dynamic Sitting Good Balance Ability Standing Balance and Reactions Static Standing Fair Balance Ability Dynamic Standing Fair Balance Ability M8 OT- IP Objective Assessments Start: 04/12/25 12:41 Freq: Status: Active Protocol: Document 04/12/25 12:42 [facility] (Rec: 04/12/25 13:00 [facility] Desktop) OT Gross Range of Motion Upper Extremity Range of Motion Assessment Within Functional Limits ROM Impairments Grossly WFL OT Strength Upper Extremity Strength Assessment Within Functional Limits M9 OT- IP Assessment and Plan Start: 04/12/25 12:41 Freq: Status: Active Protocol: Document 04/12/25 12:42 [facility] (Rec: 04/12/25 13:00 [facility] Desktop) OT Summary Assessment and Plan Potential Rehabilitation Excellent Potential Analytic Complexity Low at Evaluation Summary OT Impairments Pain,Strength,Balance,Functional Mobility,Grooming, Dressing,Toileting,Bathing,Toilet Transfers,Shower Transfers,Activity Tolerance Progress Towards Progressing Toward Goals Goals Assessment Summary Pt low complexity and main barriers are pain, step, and needing MAXA for bed mobility and transfers. Pt insisting on going home, however his just had a fall with left wrist injury. At this time best for pt to go to skilled rehab. Goals Self-Feeding Goal Independent Grooming Goal Independent Dressing Goal Independent Toileting Goal Independent Bathing Goal Standby Assistance Toilet Transfer Goal Independent Shower Transfer Goal Standby Assistance Days to Meet Goals 15 Frequency of Treatment Other frequency 5x/week Treatment Plan OT Treatment Plan ADL Training,Functional Mobility,Patient/Family Education,Discharge Planning Other Treatment Practice LB dressing equipment for ADL needs. Recommendations and Next Treatment Focus Discharge Recommendations OT Discharge SNF Rehab Recommendations Home Equipment Needs LB dressing equipment, FWW, BSC, tub bench Transportation Needs Wheelchair/Cabulance at Discharge
--- NOTE | 2025-04-12 12:04 | P.PN_ITS ---
Subjective Subjective Date Patient Seen: 04/12/25 Interval history: ID: 79yo M s/p LEFT Hip Hemiarthroplasty on 04/11/25. S: Doing well. Denies F/C/NS/CP/SOB. Reports a 2/10 pain in the hip. Working with PT on exam. Exam Vital Signs (past 8 hours): - 04/12/25 06:00 04/12/25 07:00 04/12/25 09:21 Temperature 97.8 F 97.9 F Pulse Rate 93 H 97 H Respiratory Rate 16 16 Blood Pressure 147/77 H 130/73 Pulse Oximetry 97 92 Oxygen Delivery Method Room Air Oxygen Flow Rate 2 0 Oxygen Delivery Method Room Air Oxygen Flow Rate 0 Narrative Exam Narrative: LEFT Hip: Dressings C/D/I Fires Quad/Hamstring/TA/Gastroc/EHL SILT in S/S/DP/SP/T nerve distributions Cap refill < 2 sec Objective Labs 04/12/25 05:35 04/12/25 05:35 Labs: Laboratory Results - last 24 hr 04/11/25 04/11/25 04/11/25 11:54 13:25 18:50 WBC RBC Hgb Hct MCV MCH MCHC RDW Plt Count Neut % (Auto) Lymph % (Auto) [place] % (Auto) Eos % (Auto) Baso % (Auto) Neut # (Auto) Lymph # (Auto) [place] # (Auto) Eos # (Auto) Baso # (Auto) Sodium Potassium Chloride Carbon Dioxide BUN Creatinine Estimated GFR BUN/Creatinine Ratio Glucose POC Whole Bld Glucose 84 77 144 H Calcium 04/11/25 04/12/25 04/12/25 20:20 05:35 07:35 WBC 15.2 H RBC 4.64 Hgb 13.2 L Hct 40.6 L MCV 87.5 MCH 28.4 MCHC 32.5 RDW 14.4 Plt Count 190 Neut % (Auto) 83.9 H Lymph % (Auto) 8.6 L [place] % (Auto) 7.3 Eos % (Auto) 0.0 L Baso % (Auto) 0.2 Neut # (Auto) 54419 H Lymph # (Auto) 1300 [place] # (Auto) 1100 H Eos # (Auto) 0 Baso # (Auto) 0 Sodium 133 L Potassium 4.8 Chloride 104 Carbon Dioxide 21 L BUN 23 H Creatinine 0.81 Estimated GFR > 60 BUN/Creatinine Ratio 28.4 H Glucose 111 H POC Whole Bld Glucose 109 H 94 Calcium 8.6 04/12/25 11:42 WBC RBC Hgb Hct MCV MCH MCHC RDW Plt Count Neut % (Auto) Lymph % (Auto) [place] % (Auto) Eos % (Auto) Baso % (Auto) Neut # (Auto) Lymph # (Auto) [place] # (Auto) Eos # (Auto) Baso # (Auto) Sodium Potassium Chloride Carbon Dioxide BUN Creatinine Estimated GFR BUN/Creatinine Ratio Glucose POC Whole Bld Glucose 139 H Calcium PFSH Social History household members: spouse Smoking Status: Former smoker alcohol intake: current Assessment & Plan Post-op Postoperative Procedures: Procedures Operation Date: 04/11/25 13:30 Actual Procedure Side Surgeon p Hip Hemiarthroplasty Left Clayton Juarez MD Postoperative status narrative: 79yo M s/p LEFT Hip Hemiarthroplasty on 04/11/25. Doing well. Admit to Hospitalist (Appreciate help with management) WBAT Posterior Hip Precautions PT/OT/Social Work DVT Proph per primary team DISPO: Home vs SNF depending on physical therapy Clayton Juarez MD Ortho [phone] cell Postoperative plan: routine post-op care Time Spent With Patient Time with patient: 15-24 minutes
--- NOTE | 2025-04-12 18:29 | P.PN_ITS ---
Subjective Subjective Date Patient Seen: 04/12/25 Interval history: Chief complaint: Left hip pain secondary to ground level fall with left hip fracture History of present illness: 04/10:79-year-old male who had a ground level fall while trying to clean the windows of his [employer] truck. He sustained a hip fracture after falling as well as left arm elbow and wrist abrasions. He had no LOC. He has reasonable pain control with Dilaudid, which is given in the ED. Orthopedics was contacted we will consult regarding operative repair and internal fixation of this fracture. He was doing well otherwise. His pain control is good. His past medical history is also notable for CAD with a history of CABG, diabetes type 2, hypertension, CAD, and hyperlipidemia. He was and lives in [place]. His is with him. Hospital course: 04/11:No fevers or chills overnight no chest pains hip pain is satisfactory controlled prior to surgery there are no prohibitive conditions or findings for surgical repair 04/12: No complications. Operatively hip is somewhat sore but patient is actually not complaining of much and is in quite good spirits alert and cogent Review of systems: No fever or chills No chest pain palpitations wheezing shortness for breath No nausea vomiting diarrhea No neurologic symptoms Physical exam: Elderly male alert cogent no acute distress HEENT unremarkable No JVD Respirations unlabored Extremities no edema Assessment and plan: Ground level slip and fall with left femoral neck fracture * Status post ORIF * Follow up with the PCP for possible osteopenia versus osteoporosis long-term management * DVT prophylaxis per Orthopedic surgery stewardship Chronic coronary artery disease with history of CABG * Continue all core measures following surgery Type 2 diabetes: * Sliding scale insulin as needed for hypoglycemia while hospitalized DVT prophylaxis: * Per Orthopedic surgery stewardship Code status: * Full code blue 35 minutes were required in evaluation management of this patient including patient evaluation directly in person [id number] review of history and laboratory findings Exam Vital Signs (past 8 hours): Oxygen Delivery Method Room Air Oxygen Flow Rate 0 Objective Labs 04/12/25 05:35 04/12/25 05:35 Labs: Laboratory Results - last 24 hr 04/11/25 04/11/25 04/12/25 18:50 20:20 05:35 WBC 15.2 H RBC 4.64 Hgb 13.2 L Hct 40.6 L MCV 87.5 MCH 28.4 MCHC 32.5 RDW 14.4 Plt Count 190 Neut % (Auto) 83.9 H Lymph % (Auto) 8.6 L [place] % (Auto) 7.3 Eos % (Auto) 0.0 L Baso % (Auto) 0.2 Neut # (Auto) 95559 H Lymph # (Auto) 1300 [place] # (Auto) 1100 H Eos # (Auto) 0 Baso # (Auto) 0 Sodium 133 L Potassium 4.8 Chloride 104 Carbon Dioxide 21 L BUN 23 H Creatinine 0.81 Estimated GFR > 60 BUN/Creatinine Ratio 28.4 H Glucose 111 H POC Whole Bld Glucose 144 H 109 H Calcium 8.6 04/12/25 04/12/25 04/12/25 07:35 11:42 16:51 WBC RBC Hgb Hct MCV MCH MCHC RDW Plt Count Neut % (Auto) Lymph % (Auto) [place] % (Auto) Eos % (Auto) Baso % (Auto) Neut # (Auto) Lymph # (Auto) [place] # (Auto) Eos # (Auto) Baso # (Auto) Sodium Potassium Chloride Carbon Dioxide BUN Creatinine Estimated GFR BUN/Creatinine Ratio Glucose POC Whole Bld Glucose 94 139 H 136 H Calcium PFSH Social History household members: spouse alcohol intake: current Assessment & Plan Time-Based Coding :: [TOTAL MINUTES] spent with patient and on the chart (including review of chart, obtaining history, exam, reviewing outside data, placing orders, documenting exam and treatment plan, and counseling patient) on [DATE].
[2025-04-12 19:00] VITALS: BP 144/81; PULSE 106; RESP 17; TEMP 36.7; O2SAT 94
[2025-04-12 20:09] VITALS: BP 144/81; PULSE 107
[2025-04-12] MEDS: ASPIRIN EC 81 MG TABLET PO (20:09)
[2025-04-12] MEDS: METOPROLOL ER 25 MG TABLET PO (20:09)
[2025-04-12] MEDS: PANTOPRAZOLE DR 20 MG TABLET PO (20:09)
[2025-04-12] MEDS: OXYCODONE IR 5 MG TABLET PO (20:13)
[2025-04-12 20:14] VITALS: BP 144/81; PULSE 107
[2025-04-12] MEDS: ATORVASTATIN 20 MG TABLET 80 MG PO (20:14)
[2025-04-12 20:40] VITALS: BP 133/78; PULSE 96
[2025-04-13 05:35] LABS: Add Manual Diff / Slide Review NO; Hematocrit 37.9 % (41-53); Hemoglobin 12.7 g/dL (13.5-17.5); Lymphocytes Absolute Auto 1800 /uL (1100-4500); Mean Corpuscular HGB Conc 33.6 % (30-36); Mean Corpuscular Hemoglobin 29.0 PG (26-34); Mean Corpuscular Volume 86.3 fL (80-100); Platelet Count 195 X10^3/uL (150-400)
[2025-04-13 05:50] LABS: Blood Urea Nitrogen 26 mg/dL (9-20); Calcium 8.6 mg/dL (8.4-10.2); Carbon Dioxide 26 mmol/L (22-32); Chloride 102 mmol/L (98-107); Estimated Glomerular Filt Rate > 60 mL/min (>60); Glucose 116 mg/dL (70-99); HEMOLYSIS < 15 (0-50); Potassium 3.5 mmol/L (3.4-5.1); Sodium 135 mmol/L (137-145)
[2025-04-13 08:00] VITALS: BP 143/81; PULSE 96; RESP 18; TEMP 36.9; O2SAT 94
[2025-04-13] MEDS: HEPARIN 5,000 UNIT/ML VIAL 5000 UNIT SUBCUT ×2 (09:31→20:52)
[2025-04-13] MEDS: OXYCODONE IR 5 MG TABLET PO ×2 (09:32→15:33)
[2025-04-13] MEDS: POTASSIUM CHLORIDE 20 MEQ TAB 40 MEQ PO (09:32)
[2025-04-13] MEDS: FERROUS SULFATE 325 MG TABLET PO (09:33)
--- NOTE | 2025-04-13 09:58 | PM.PNPO.1 ---
Exam Vital Signs (past 8 hours): - 04/13/25 08:00 Temperature 98.4 F Pulse Rate 96 H Respiratory Rate 18 Blood Pressure 143/81 H Pulse Oximetry 94 Oxygen Flow Rate 0 Oxygen Delivery Method Room Air Oxygen Flow Rate 0 Objective Labs 04/13/25 05:15 04/13/25 05:15 Labs: Laboratory Results - last 24 hr 04/12/25 04/12/25 04/12/25 11:42 16:51 20:45 WBC RBC Hgb Hct MCV MCH MCHC RDW Plt Count Neut % (Auto) Lymph % (Auto) [place] % (Auto) Eos % (Auto) Baso % (Auto) Neut # (Auto) Lymph # (Auto) [place] # (Auto) Eos # (Auto) Baso # (Auto) Sodium Potassium Chloride Carbon Dioxide BUN Creatinine Estimated GFR BUN/Creatinine Ratio Glucose POC Whole Bld Glucose 139 H 136 H 144 H Calcium 04/13/25 04/13/25 05:15 07:22 WBC 10.8 RBC 4.39 L Hgb 12.7 L Hct 37.9 L MCV 86.3 MCH 29.0 MCHC 33.6 RDW 14.2 Plt Count 195 Neut % (Auto) 70.8 Lymph % (Auto) 17.1 L [place] % (Auto) 8.6 Eos % (Auto) 2.5 Baso % (Auto) 1.0 Neut # (Auto) 7700 H Lymph # (Auto) 1800 [place] # (Auto) 900 Eos # (Auto) 300 Baso # (Auto) 100 Sodium 135 L Potassium 3.5 D Chloride 102 Carbon Dioxide 26 BUN 26 H Creatinine 0.78 Estimated GFR > 60 BUN/Creatinine Ratio 33.3 H Glucose 116 H POC Whole Bld Glucose 94 Calcium 8.6 PFSH Social History household members: spouse alcohol intake: current Assessment & Plan Post-op Postoperative Procedures: Procedures Operation Date: 04/11/25 13:30 Actual Procedure Side Surgeon p Hip Hemiarthroplasty Left Clayton Juarez MD Postoperative status narrative: ID: 79 yo M s/p left hip hemiarthroplasty on April 11, 2025 S: Pain controlled with pain medications. Denies F/C/NS/CP/SOB. Tolerating PO. He worked with physical therapy yesterday and he was able to walk approximately 12 ft. He sat in a chair for most of the day. He is frustrated because he felt that he did not receive good care in that he sat in the chair for a long period of time. He is adamant about not going to a SNF and wants to be discharged to home. O: Left Hip: Dressings C/D/I Fires Quad/Hamstring/TA/Gastroc/EHL SILT in S/S/DP/SP/T nerve distributions Cap refill < 2 sec A/P: 79 yo M s/p left hip hemiarthroplasty on April 11, 2025 Patient is doing well. I explained to the patient that postop day 1 it is standard for patient to only walk a short distance and sit up in a chair. I explained that I would like him to continue work with physical therapy and based off of their recommendations he may require a SNF placement. He is very clear that he is not going to a SNF and he is willing to stay 1 extra night but tomorrow he will be discharged. I explained that we are just giving guidance to ensure that he is safe. ?Admitted to Hospitalist (Appreciate assistance with this patient) ?WBAT ?PT/OT ?DVT Proph per primary team ?Multimodal Pain Control ?DISPO: Pending however the patient will follow up with Orthopedics in 2 weeks Clayton Juarez MD Orthopedics [phone] cell Postoperative plan: routine post-op care Time Spent With Patient Time with patient: 15-24 minutes
--- NOTE | 2025-04-13 10:30 | PT.IPTN ---
Current Diagnoses Fracture of unspecified part of neck of left femur, initial encounter for closed fracture (04/10/25) Surgery Performed Operation Date: 04/11/25 13:30 Actual Procedures p Hip Hemiarthroplasty(Left) - Clayton Juarez MD Physical Therapy Treatment Note M2 PT-IP Current Condition Start: 04/12/25 12:48 Freq: NEEDED Status: Active Protocol: Document 04/12/25 12:48 [facility] (Rec: 04/12/25 13:06 AB [id number]) Physical Therapy Current Condition Current Condition Evaluation Date 04/12/25 Treatment Diagnosis GLF; s/p L hip hemiarthroplasty; difficulty in walking Onset Date 04/10/25 M3 PT-IP Subjective Start: 04/12/25 12:48 Freq: NEEDED Status: Active Protocol: Document 04/13/25 10:30 [facility] (Rec: 04/13/25 13:16 [facility] Desktop) Subjective Physical Therapy Visit Type Type Treatment Note Visit Start Time 10:30 Visit Stop Time 11:15 Number of BUSINESS ANALYST MANAGER Visits 0 Physical Therapy Visit Comments Patient Comments agreeable to do PT Therapy Pain Assessment Pain When Pain Assessed At Rest Pain Present Pain Present Pain Reported Location Left Hip Intensity 2 Scale Used Numeric (0 - 10) Pain Management Distraction,Modification of Treatment,Re-positioning, Techniques Timing of Activity with Medications M4 PT-IP Mobility and Gait Start: 04/12/25 12:48 Freq: NEEDED Status: Active Protocol: Document 04/13/25 10:30 [facility] (Rec: 04/13/25 13:16 [facility] Desktop) PT-Bed Mobility Assessment Supine to Sit Supine to Sit Maximum Assistance Scooting Scooting to Edge of Moderate Assistance Bed PT-Transfer Assessment Sit to and From Stand Sit to and from Maximum Assistance,1 Person Assistance,Use of Upper Stand Extremities Equipment Transfer Assistive Gait Belt,Front Wheeled Walker Device Orthotic/Prosthetic No Devices or Brace: Transfers Transfer Destination Chair Transfer Technique ambulated Transfer Ability Level of Assist Moderate Assistance,1 Person Assistance,Use of Upper Extremities Comments Mobility Comments pt in bed and spouse in room. spouse confirmed that she will be able to assist pt despite L wrist fx. reviewed L hip precautions with pt. caregiver training initiated. pt completed supine to sit with HOB elevated. educated spouse on how to assist pt and was able to assist pt safely. pt needed increase time to complete all tasks. mod A for scooting to EOB. sit to stand max A and cues for LLE position for hip precautions. pt ambulated to chair using FWW mod A and cues. spouse was able to assist pt . pt sat on chair max A. pt stated that he needs to rest before he can do stairs. positioned pt on the chair. call light and table placed within reach. informed pt and spouse that PT will see pt again in the afternoon. Gait Assessment Gait Gait Assistance Moderate Assistance Required: Distance (Feet) 12 Able to Maintain Yes Weight Bearing Status During Gait Assistive Devices Assistive Device Gait Belt,Front Wheeled Walker Orthotic/Prosthetic No Devices or Brace: Gait Deviations General Gait Pattern Antalgic,Decreased Stride Length,Decreased Feet Clearance,Step-to Gait Factors Limiting Gait Function Factors Limiting Decreased Activity Tolerance,Decreased Strength, Gait Function Difficulty Following Directions,Poor Balance,Poor Safety Awareness,Respiratory Distress M5 PT-IP Objective Assessments Start: 04/12/25 12:48 Freq: NEEDED Status: Active Protocol: Document 04/12/25 12:48 AB (Rec: 04/12/25 13:06 AB [id number]) Orientation Orientation/Cognition Level of Alertness Alert Orientation Name,Place,Situation Language Function Hard of Hearing Ability Safety Awareness Decreased Safety Awareness Memory Description No Deficits Noted Gross Range of Motion Lower Extremity ROM Assessment Within Functional Limits Strength Lower Extremity Strength Assessment Left Impaired Hip 3-/5 Knee 3+/5 Sensation Assessment Sensation Gross Sensation Right LE Impaired,Left LE Impaired Sensation Numbness Description Comments Sensation Comments B feet numbness: chronic Muscle Tone Muscle Tone WNL Yes M6 PT-IP Treatment Start: 04/12/25 12:48 Freq: NEEDED Status: Active Protocol: Document 04/13/25 10:30 AB (Rec: 04/13/25 13:16 [facility] Desktop) Physical Therapy Treatment Education Education Provided Precautions,Safety M7 PT-IP Assessment and Plan Start: 04/12/25 12:48 Freq: NEEDED Status: Active Protocol: Document 04/13/25 10:30 [facility] (Rec: 04/13/25 13:16 AB Desktop) PT Summary Assessment and Plan Potential Rehabilitation Fair Potential Summary Impairments Pain,ROM,Strength,Balance,Coordination,Sensation,Tone, Cognition,Bed Mobility,Transfers,Gait,Activity Tolerance Progress Towards Slow Progress due to Activity Tolerance,Slow Progress - Goals Other Assessment Summary caregiver training initiated but further training needed. spouse, so far, was able to assist pt with supine to sit, sit to stand and ambulation using FWW. will see pt again this afternoon for PT and do more caregiver training and assess carryover of training. Goals Bed Mobility Goal Minimal Assistance Transfer Goal Minimal Assistance,Front Wheeled Walker Gait Goal Contact Guard Assistance,Front Wheel Walker Gait Distance 100 Other Goals improve bed mobility, transfers, ambulation using fWW ~ 150 ft SBA up/down 1 step using fWW SBA Days to Meet Goals 10 Frequency of Treatment Other frequency 1-2x/day Treatment Plan Physical Therapy Bed Mobility Training,Transfer Training,Gait Training, Treatment Plan Therapeutic Exercise,Balance Retraining,Post Op Education,Discharge Planning,Hot or Cold Pack, Neuromuscular Re-ed,Coordination Retraining,Manual Therapy Precautions Posterior Hip No Hip Flexion > 90 degrees,No Hip Internal Rotation,No Precautions Hip Adduction Weight Bearing Status Weight Bearing Weight Bear as Tolerated Status Allowed Weight LLE WBAT Bearing Amount ( enter % or #) (%) Recommendations To Nursing Amount of Assist 1 Person Assist Needed Discharge Recommendations PT Discharge Home with 11/04 Assist Available,Home Health Recommendations Equipment Needed for FWW Home Before Discharge Transportation Needs Private Vehicle,Wheelchair/Cabulance at Discharge - PT assist 1
--- NOTE | 2025-04-13 14:05 | PT.IPTN ---
Current Diagnoses Fracture of unspecified part of neck of left femur, initial encounter for closed fracture (04/10/25) Surgery Performed Operation Date: 04/11/25 13:30 Actual Procedures p Hip Hemiarthroplasty(Left) - Clyaton Juarez MD Physical Therapy Treatment Note M2 PT-IP Current Condition Start: 04/12/25 12:48 Freq: NEEDED Status: Active Protocol: Document 04/12/25 12:48 AB (Rec: 04/12/25 13:06 AB [id number]) Physical Therapy Current Condition Current Condition Evaluation Date 04/12/25 Treatment Diagnosis GLF; s/p L hip hemiarthroplasty; difficulty in walking Onset Date 04/10/25 M3 PT-IP Subjective Start: 04/12/25 12:48 Freq: NEEDED Status: Active Protocol: Document 04/13/25 14:05 AB (Rec: 04/13/25 16:31 AB Desktop) Subjective Physical Therapy Visit Type Type Treatment Note Visit Start Time 14:05 Visit Stop Time 15:10 Number of MELTER CASTER Visits 0 Physical Therapy Visit Comments Patient Comments agreeable to do PT M4 PT-IP Mobility and Gait Start: 04/12/25 12:48 Freq: NEEDED Status: Active Protocol: Document 04/13/25 14:05 AB (Rec: 04/13/25 16:31 AB Desktop) PT-Bed Mobility Assessment Supine to Sit Supine to Sit Maximum Assistance,Total Assistance,Head of Bed Elevated Sit to Supine Sit to Supine Maximum Assistance,Total Assistance PT-Transfer Assessment Sit to and From Stand Sit to and from Moderate Assistance,Maximum Assistance,1 Person Stand Assistance,Use of Upper Extremities Equipment Transfer Assistive Gait Belt,Front Wheeled Walker Device Orthotic/Prosthetic No Devices or Brace: Comments Mobility Comments pt in bed and spouse in room. Caregiver training conducted. spouse was able to assist pt with sit to supine but needed cues from PT on how to complete task and cue pt. spouse was able to put safety belt on pt. stair climbing training: educated pt and spouse for up/ down step using FWW. pt completed sit to stand from EOB mod to max A and max cues, ambulated towards platform step using FWW mod A ~ 12 ft. pt completed up/down platform step requiring mod to max A and max cues. PT assisted pt. pt repeated with spouse assisting and able to complete. pt and spouse stated that if needed, [facility] has a lift assist available to assist them into the house. pt ambulated back to EOB using FWW mod A. sit to supine max A and max cues. pt required increase time to complete all tasks. positioned pt in bed. call light and table placed within reach. pt and spouse without any other concerns. Gait Assessment Gait Gait Assistance Moderate Assistance,1 Person Assist Required: Distance (Feet) 12 Able to Maintain Yes Weight Bearing Status During Gait Assistive Devices Assistive Device Gait Belt,Front Wheeled Walker Orthotic/Prosthetic No Devices or Brace: Gait Deviations General Gait Pattern Decreased Stride Length,Decreased Feet Clearance,Step- to Gait Factors Limiting Gait Function Factors Limiting Decreased Activity Tolerance,Decreased Strength, Gait Function Difficulty Following Directions,Limited Range of Motion ,Pain,Poor Balance,Poor Safety Awareness Stair Climbing Assessment Evaluation Level of Assist On Moderate Assistance,Maximal Assistance,1 Person Stairs Assistance Devices Stair Climbing Front Wheel Walker Assistive Devices Technique/Endurance Stair Climbing Ascend and Descend Direction Stair Climbing Step to Step Technique Number of Steps 1 Climbed Stair Climbing Set # 2 Repetitions (reps) M5 PT-IP Objective Assessments Start: 04/12/25 12:48 Freq: NEEDED Status: Active Protocol: Document 04/12/25 12:48 AB (Rec: 04/12/25 13:06 AB [id number]) Orientation Orientation/Cognition Level of Alertness Alert Orientation Name,Place,Situation Language Function Hard of Hearing Ability Safety Awareness Decreased Safety Awareness Memory Description No Deficits Noted Gross Range of Motion Lower Extremity ROM Assessment Within Functional Limits Strength Lower Extremity Strength Assessment Left Impaired Hip 3-/5 Knee 3+/5 Sensation Assessment Sensation Gross Sensation Right LE Impaired,Left LE Impaired Sensation Numbness Description Comments Sensation Comments B feet numbness: chronic Muscle Tone Muscle Tone WNL Yes M6 PT-IP Treatment Start: 04/12/25 12:48 Freq: NEEDED Status: Active Protocol: Document 04/13/25 14:05 AB (Rec: 04/13/25 16:31 AB Desktop) Physical Therapy Treatment Education Education Provided Precautions,Safety Equipment Issued Equipment Type and FWW: [facility] M7 PT-IP Assessment and Plan Start: 04/12/25 12:48 Freq: NEEDED Status: Active Protocol: Document 04/13/25 14:05 AB (Rec: 04/13/25 16:31 AB Desktop) PT Summary Assessment and Plan Potential Rehabilitation Fair Potential Summary Impairments Pain,ROM,Strength,Balance,Coordination,Sensation,Tone, Cognition,Bed Mobility,Transfers,Gait,Activity Tolerance Progress Towards Slow Progress due to Activity Tolerance,Slow Progress - Goals Other Assessment Summary caregiver training completed. pt plans to go home and spouse to assist him. pt will need HHPT. Goals Bed Mobility Goal Minimal Assistance Transfer Goal Minimal Assistance,Front Wheeled Walker Gait Goal Contact Guard Assistance,Front Wheel Walker Gait Distance 100 Other Goals improve bed mobility, transfers, ambulation using fWW ~ 150 ft SBA up/down 1 step using fWW SBA Days to Meet Goals 10 Frequency of Treatment Other frequency 1-2x/day Treatment Plan Physical Therapy Bed Mobility Training,Transfer Training,Gait Training, Treatment Plan Therapeutic Exercise,Balance Retraining,Post Op Education,Discharge Planning,Hot or Cold Pack, Neuromuscular Re-ed,Coordination Retraining,Manual Therapy Precautions Posterior Hip No Hip Flexion > 90 degrees,No Hip Internal Rotation,No Precautions Hip Adduction Weight Bearing Status Weight Bearing Weight Bear as Tolerated Status Allowed Weight LLE WBAT Bearing Amount ( enter % or #) (%) Recommendations To Nursing Amount of Assist 1 Person Assist Needed Discharge Recommendations PT Discharge Home with 11/04 Assist Available,Home Health Recommendations Transportation Needs Private Vehicle,Wheelchair/Cabulance at Discharge - PT assist 1
--- NOTE | 2025-04-13 14:21 | CM.DPC ---
DCP HH planning: Per MD, pt making some progress but likely not yet stable for discharge yet today. Per PT, pt improved today but still need to do CG training with spouse and feel pt could likely d/c home with spouse assist, FWW, and HH if he continues to progress. FWW orders placed per PT and pt request. No HH preference and SW made new referral to [facility] based on Vendor Calendar and requested review as pt may only have MCR A only but also has BX Fed to determine if he has HH coverage. F2F not completed yet. Karmen Colunga, DYE PEN[employer]RANT TESTING TECHNICIAN
--- NOTE | 2025-04-13 15:38 | PM.PN.1 ---
Subjective Subjective Interval history: 79-year-old gentleman with coronary disease status post CABG, type 2 diabetes, hyperlipidemia, and hypertension who was admitted after a left displaced femoral neck fracture. He is postoperative day 2 From a left hip hemiarthroplasty. He reports he is doing quite well from a standpoint of pain. He is only required minimal pain medication. He does hope to return home tomorrow. His unfortunately fell and sustained a fracture to her left wrist. They both feel confident they will be able to meet his needs at home with home health. Patient's spouse is a retired orthopedic nurse. Their daughter is a labor and delivery/ nursery RN. She will be off this week to assist as well. Patient denies any shortness a breath, nausea. Exam Vital Signs (past 8 hours): - 04/13/25 08:00 Temperature 98.4 F Pulse Rate 96 H Respiratory Rate 18 Blood Pressure 143/81 H Pulse Oximetry 94 Oxygen Flow Rate 0 Oxygen Delivery Method Room Air Oxygen Flow Rate 0 Narrative Exam Narrative: GEN: Very pleasant elderly male, Alert and oriented x 3, NAD HEENT:NC, Face symmetric CHEST: Respiratory excursions symmetric, CTAB CV: RRR, no M/R/G ABD: Soft, NT/ND, BT present in all 4 quadrants, no organomegaly or masses EXTR: warm, well perfused, no C/C/E SKIN: warm and dry, no rash NEURO: Alert and oriented x 3, nonfocal Objective Labs 04/13/25 05:15 04/13/25 05:15 Labs: Laboratory Results - last 24 hr 04/12/25 04/12/25 04/13/25 16:51 20:45 05:15 WBC 10.8 RBC 4.39 L Hgb 12.7 L Hct 37.9 L MCV 86.3 MCH 29.0 MCHC 33.6 RDW 14.2 Plt Count 195 Neut % (Auto) 70.8 Lymph % (Auto) 17.1 L [place] % (Auto) 8.6 Eos % (Auto) 2.5 Baso % (Auto) 1.0 Neut # (Auto) 7700 H Lymph # (Auto) 1800 [place] # (Auto) 900 Eos # (Auto) 300 Baso # (Auto) 100 Sodium 135 L Potassium 3.5 D Chloride 102 Carbon Dioxide 26 BUN 26 H Creatinine 0.78 Estimated GFR > 60 BUN/Creatinine Ratio 33.3 H Glucose 116 H POC Whole Bld Glucose 136 H 144 H Calcium 8.6 04/13/25 04/13/25 07:22 11:42 WBC RBC Hgb Hct MCV MCH MCHC RDW Plt Count Neut % (Auto) Lymph % (Auto) [place] % (Auto) Eos % (Auto) Baso % (Auto) Neut # (Auto) Lymph # (Auto) [place] # (Auto) Eos # (Auto) Baso # (Auto) Sodium Potassium Chloride Carbon Dioxide BUN Creatinine Estimated GFR BUN/Creatinine Ratio Glucose POC Whole Bld Glucose 94 136 H Calcium PFSH Social History household members: spouse alcohol intake: current Assessment & Plan Assessment & Plan narrative: 1. Postoperative day 2 from left hip hemiarthroplasty for a displaced femoral neck fracture Patient worked with physical therapy today and his spouse had caregiver training. She physical therapy will work with the spouse again this afternoon for more caregiver training. Plan for ongoing caregiver training tomorrow morning and hopefully discharge home tomorrow afternoon. Pain is reasonably well controlled at this time. Anticipate he will discharge home with home health. 2. Coronary artery disease Presently stable. He remains on atorvastatin, aspirin, ROEL inhibitor, and beta-mona. 3. Hypertension Patient is on Toprol-XL and lisinopril. Blood pressures are fairly well controlled. 4. Diabetes mellitus type 2 Blood sugars are overall well controlled. 5. Normocytic anemia Mild. Hemoglobin is 12.7 today. Likely secondary to expected intraoperative blood loss Code status Full Prophylaxis On heparin Disposition Home tomorrow with home health services Time-Based Coding :: [TOTAL MINUTES] spent with patient and on the chart (including review of chart, obtaining history, exam, reviewing outside data, placing orders, documenting exam and treatment plan, and counseling patient) on [DATE].
--- NOTE | 2025-04-13 18:35 | PC.NURSE ---
Pt worked w/ PT , tolerated well Aquacell dsg to left hip CDI. Med x 1 for discomfort w/good relief. Satisfactory post op course. Call light w/in reach, pt calls appropriately for needs, Continue w/plan of care.
[2025-04-13 19:00] VITALS: BP 139/82; PULSE 108; RESP 16; TEMP 37.3; O2SAT 99
[2025-04-13] MEDS: PANTOPRAZOLE DR 20 MG TABLET PO (20:52)
[2025-04-13] MEDS: METOPROLOL ER 25 MG TABLET PO (20:52)
[2025-04-13] MEDS: ASPIRIN EC 81 MG TABLET PO (20:53)
[2025-04-13] MEDS: ATORVASTATIN 20 MG TABLET 80 MG PO (20:53)
[2025-04-13] MEDS: ACETAMINOPHEN 325 MG TABLET 650 MG PO (20:55)
[2025-04-14] MEDS: OXYCODONE IR 5 MG TABLET PO (05:20)
[2025-04-14] MEDS: EMPAGLIFLOZIN LINAGLIPTIN 1 EACH PO (05:33)
[2025-04-14 05:49] LABS: Add Manual Diff / Slide Review NO; Hematocrit 39.0 % (41-53); Hemoglobin 13.2 g/dL (13.5-17.5); Lymphocytes Absolute Auto 1600 /uL (1100-4500); Mean Corpuscular HGB Conc 33.9 % (30-36); Mean Corpuscular Hemoglobin 29.0 PG (26-34); Mean Corpuscular Volume 85.7 fL (80-100); Platelet Count 207 X10^3/uL (150-400)
[2025-04-14 06:00] LABS: Blood Urea Nitrogen 19 mg/dL (9-20); Calcium 8.7 mg/dL (8.4-10.2); Carbon Dioxide 27 mmol/L (22-32); Chloride 100 mmol/L (98-107); Estimated Glomerular Filt Rate > 60 mL/min (>60); Glucose 105 mg/dL (70-99); HEMOLYSIS < 15 (0-50); Potassium 3.6 mmol/L (3.4-5.1); Sodium 135 mmol/L (137-145)
[2025-04-14 07:00] VITALS: BP 142/85; PULSE 97; RESP 20; TEMP 36.6; O2SAT 97
--- NOTE | 2025-04-14 08:31 | PM.PNPO.1 ---
Exam Vital Signs (past 8 hours): - 04/14/25 07:00 Temperature 98 F Pulse Rate 97 H Respiratory Rate 20 Blood Pressure 142/85 H Pulse Oximetry 97 Oxygen Delivery Method Room Air Oxygen Flow Rate 0 Objective Labs 04/14/25 05:12 04/14/25 05:12 Labs: Laboratory Results - last 24 hr 04/13/25 04/13/25 04/13/25 11:42 16:33 20:14 WBC RBC Hgb Hct MCV MCH MCHC RDW Plt Count Neut % (Auto) Lymph % (Auto) Steele % (Auto) Eos % (Auto) Baso % (Auto) Neut # (Auto) Lymph # (Auto) [place] # (Auto) Eos # (Auto) Baso # (Auto) Sodium Potassium Chloride Carbon Dioxide BUN Creatinine Estimated GFR BUN/Creatinine Ratio Glucose POC Whole Bld Glucose 136 H 136 H 122 H Calcium 04/14/25 04/14/25 05:12 07:56 WBC 9.7 RBC 4.55 Hgb 13.2 L Hct 39.0 L MCV 85.7 MCH 29.0 MCHC 33.9 RDW 14.3 Plt Count 207 Neut % (Auto) 71.3 Lymph % (Auto) 16.7 L [place] % (Auto) 8.8 Eos % (Auto) 2.7 Baso % (Auto) 0.5 Neut # (Auto) 6900 Lymph # (Auto) 1600 [place] # (Auto) 900 Eos # (Auto) 300 Baso # (Auto) 0 Sodium 135 L Potassium 3.6 Chloride 100 Carbon Dioxide 27 BUN 19 Creatinine 0.72 Estimated GFR > 60 BUN/Creatinine Ratio 26.4 H Glucose 105 H POC Whole Bld Glucose 100 H Calcium 8.7 PFSH Social History household members: spouse alcohol intake: current Assessment & Plan Post-op Postoperative Procedures: Procedures Operation Date: 04/11/25 13:30 Actual Procedure Side Surgeon p Hip Hemiarthroplasty Left Clayton Juarez MD Postoperative status narrative: ID: [id number] yo M s/p left hip hemiarthroplasty on April 11, 2025 S: Pain controlled with pain medications. Denies F/C/NS/CP/SOB. Tolerating PO. He reports that he is taking approximately 1 oxycodone a day. He worked with physical therapy yesterday and he was able to walk and navigate stairs He is adamant about not going to a SNF and wants to be discharged to home. He would like to be discharged home after physical therapy today. O: Left Hip: Dressings C/D/I Fires Quad/Hamstring/TA/Gastroc/EHL SILT in S/S/DP/SP/T nerve distributions Cap refill < 2 sec A/P: 79 yo M s/p left hip hemiarthroplasty on April 11, 2025 Patient is doing well. Pain is well controlled, tolerating p.o. and has been ambulating with physical therapy. I explained that his performance with physical therapy we will determine whether or not his recommendation would be to discharge home versus SNF. They are adamant about going home today. I would recommend that he be discharged with a small amount of oxycodone and Colace. ?Admitted to Hospitalist (Appreciate assistance with this patient) ?WBAT ?PT/OT ?DVT Proph per primary team ?Multimodal Pain Control ?DISPO: Pending on how he does with physical therapy however the patient will follow up with Orthopedics in 2 weeks Clayton Juarez MD Orthopedics [phone] cell Postoperative plan: routine post-op care Time Spent With Patient Time with patient: 15-24 minutes
[2025-04-14] MEDS: FERROUS SULFATE 325 MG TABLET PO (09:28)
[2025-04-14] MEDS: HEPARIN 5,000 UNIT/ML VIAL 5000 UNIT SUBCUT (09:29)
--- NOTE | 2025-04-14 09:38 | CM.DPC ---
Addendum entered by CHEY Smith 04/15/25 09:04: ADD: Per yesterday 04/14/25, confirmed pt was stable for discharge home and pt left after SW shift. Today 04/15/25, [facility] confirms [facility] can accept pt's [facility] [employer] for HH and faxed d/c summary, F2F and orders. They will contact the pt today to schedule. BF Original Note: DCP Home with HH SW met bedside with pt and spouse and they confirm that their preference remains home today with HH and decline SNF at this time and pt and spouse agree that pt has improved enough with mobility that they can safely manage at home. SW provided the [facility] brochure and discussed that pt's MCR A does not cover HH but that [facility] is confirming tomorrow Mon that his [employer] insurance covers HH. Both pt and spouse adamant that BX Fed has been great and covered things like HH before and are comfortable discharging home and talking with [facility] tomorrow to confirm HH coverage. Pt's issued FWW in room and spouse aware and plans to transport pt home today if medically stable and do not anticipate any further needs at this time. F2F and HH orders sent to [facility] and awaiting d/c summary to fax as well. CHEY Smith
--- NOTE | 2025-04-14 11:57 | PT.IPTN ---
Current Diagnoses Fracture of unspecified part of neck of left femur, initial encounter for closed fracture (04/10/25) Surgery Performed Operation Date: 04/11/25 13:30 Actual Procedures p Hip Hemiarthroplasty(Left) - Clayton Juarez MD Physical Therapy Treatment Note M2 PT-IP Current Condition Start: 04/12/25 12:48 Freq: NEEDED Status: Active Protocol: Document 04/12/25 12:48 AB (Rec: 04/12/25 13:06 AB [id number]) Physical Therapy Current Condition Current Condition Evaluation Date 04/12/25 Treatment Diagnosis GLF; s/p L hip hemiarthroplasty; difficulty in walking Onset Date 04/10/25 M3 PT-IP Subjective Start: 04/12/25 12:48 Freq: NEEDED Status: Active Protocol: Document 04/14/25 11:21 MB (Rec: 04/14/25 11:56 MB Desktop) Therapy Pain Assessment Pain When Pain Assessed At Rest Pain Present Pain Present Pain Reported Location Left Hip Scale Used Does not rate M4 PT-IP Mobility and Gait Start: 04/12/25 12:48 Freq: NEEDED Status: Active Protocol: Document 04/14/25 11:21 MB (Rec: 04/14/25 11:56 MB Desktop) PT-Bed Mobility Assessment Supine to Sit Supine to Sit Moderate Assistance,1 Person Assistance Scooting Scooting to Edge of Moderate Assistance Bed PT-Transfer Assessment Sit to and From Stand Sit to and from Minimal Assistance,1 Person Assistance,Use of Upper Stand Extremities Equipment Transfer Assistive Gait Belt,Front Wheeled Walker Device Orthotic/Prosthetic No Devices or Brace: Transfers Transfer Destination Chair Transfer Technique ambulated Transfer Ability Level of Assist Moderate Assistance,1 Person Assistance,Use of Upper Extremities Comments Mobility Comments Pt and work together for bed mobility and getting to EOB. PT provides some VCs. They maintain left posterior hip precautions. Pt cannot clearly state any hip precautions without cues today. Gait Assessment Gait Gait Assistance Contact Guard Assist,1 Person Assist Required: Distance (Feet) 20 Able to Maintain Yes Weight Bearing Status During Gait Assistive Devices Assistive Device Gait Belt,Front Wheeled Walker Orthotic/Prosthetic No Devices or Brace: Gait Deviations General Gait Pattern Decreased Stride Length,Decreased Feet Clearance,Step- to Gait Factors Limiting Gait Function Factors Limiting Decreased Activity Tolerance,Decreased Strength, Gait Function Difficulty Following Directions,Limited Range of Motion ,Pain,Poor Balance,Poor Safety Awareness Comments Gait Comments Cues for walker first, then sore foot and then good foot for forward gait and reverse for retropulsion stepping to the chair Stair Climbing Assessment Comments Stair Climbing Pt and decline stair training today Comments PT-Balance Assessment Sitting Balance and Reactions Static Sitting Normal Balance Ability Dynamic Sitting Good Balance Ability Standing Balance and Reactions Static Standing Fair Balance Ability Dynamic Standing Fair Balance Ability Device Used FWW M5 PT-IP Objective Assessments Start: 04/12/25 12:48 Freq: NEEDED Status: Active Protocol: Document 04/12/25 12:48 AB (Rec: 04/12/25 13:06 AB [id number]) Orientation Orientation/Cognition Level of Alertness Alert Orientation Name,Place,Situation Language Function Hard of Hearing Ability Safety Awareness Decreased Safety Awareness Memory Description No Deficits Noted Gross Range of Motion Lower Extremity ROM Assessment Within Functional Limits Strength Lower Extremity Strength Assessment Left Impaired Hip 3-/5 Knee 3+/5 Sensation Assessment Sensation Gross Sensation Right LE Impaired,Left LE Impaired Sensation Numbness Description Comments Sensation Comments B feet numbness: chronic Muscle Tone Muscle Tone WNL Yes M6 PT-IP Treatment Start: 04/12/25 12:48 Freq: NEEDED Status: Active Protocol: Document 04/14/25 11:21 MB (Rec: 04/14/25 11:56 MB Desktop) Physical Therapy Treatment Education Education Provided Precautions,Safety Other Treatments Other Treatment See education comments in assessment Performed M7 PT-IP Assessment and Plan Start: 04/12/25 12:48 Freq: NEEDED Status: Active Protocol: Document 04/14/25 11:21 MB (Rec: 04/14/25 11:56 MB Desktop) PT Summary Assessment and Plan Potential Rehabilitation Fair Potential Status of Condition Evolving at Evaluation Summary Impairments Pain,ROM,Strength,Balance,Coordination,Sensation,Tone, Cognition,Bed Mobility,Transfers,Gait,Activity Tolerance Progress Towards Slow Progress due to Activity Tolerance,Slow Progress - Goals Other Assessment Summary states that she understands that it is PT who clears pt to d/c him home. PT re-ed pt and that pt 's are not cleared for d/c by PT in the acute setting, that pt's are d/cd when they are medically stable as determined by their doctor. has bruising on face and her left arm is in a sling. When PT asks pt and about why the plan is to d/c home rather than to SNF given they both have orthopedic injuries, pt becomes agitated and states, We have already argued with two therapists about this and the doctor thinks I am okay to go home. Pt cannot recall his hip precautions today without cues. Pt and mobilize him in the manner they prefer today, pt directing treatment. PT provides some cues. asks again about PT clearing pt and PT ed pt and that they have made their decision about d/c location and while PT respects their decision, PT recommends SNF given pt's need for assistance after fall, hip fracture and surgery, ongoing high fall risk, pt's pain and 's own inability to use left arm after fracture and in sling. Recommend SNF at d/c. Goals Bed Mobility Goal Minimal Assistance Transfer Goal Minimal Assistance,Front Wheeled Walker Gait Goal Contact Guard Assistance,Front Wheel Walker Gait Distance 50 Other Goals up/down 1 step using fWW SBA Days to Meet Goals 10 Frequency of Treatment Other frequency 1-2x/day Treatment Plan Physical Therapy Bed Mobility Training,Transfer Training,Gait Training, Treatment Plan Therapeutic Exercise,Balance Retraining,Post Op Education,Discharge Planning,Hot or Cold Pack, Neuromuscular Re-ed,Coordination Retraining,Manual Therapy Precautions Posterior Hip No Hip Flexion > 90 degrees,No Hip Internal Rotation,No Precautions Hip Adduction Weight Bearing Status Weight Bearing Weight Bear as Tolerated Status Allowed Weight LLE WBAT Bearing Amount ( enter % or #) (%) Recommendations To Nursing Amount of Assist 1 Person Assist Needed Discharge Recommendations PT Discharge SNF Rehab Recommendations Transportation Needs Private Vehicle,Wheelchair/Cabulance at Discharge - PT assist x1
--- NOTE | 2025-04-14 12:14 | PC.NURSE ---
Patient will be discharging home today. He worked with physical therapy and dressing is aquacel/[facility]. Resting comfortably in bed.
--- NOTE | 2025-04-14 20:28 | P.DS_ITS ---
History of Present Illness History of Present Illness Chief complaint: GLF, r/o L hip fx Narrative: Per H&P: The patient was a very pleasant 79-year-old male who had a ground level fall while trying to clean the windows of his [employer] truck. He sustained a hip fracture after falling as well as left arm elbow and wrist abrasions. He had no LOC. He has reasonable pain control with Dilaudid, which is given in the ED. Orthopedics was contacted we will consult regarding operative repair and internal fixation of this fracture. He was doing well otherwise. His pain control is good. His past medical history is also notable for CAD with a history of CABG, diabetes type 2, hypertension, CAD, and hyperlipidemia. He was and lives in [place]. His is with him. Discharge Providers Provider Date of admission: 04/10/25 10:02 Discharge Date: 04/14/25 Consults: 04/10/25 09:40 Consult to Orthopedic Surgery Stat Comment: jerrica Consulting Provider: Clayton Juarez Reason for consultation: L hip fracture Has provider been notified: Yes 04/11/25 16:36 Consult to Physical Therapy Evaluate & Treat Comment: S/P LEFT Hip Hemiarthroplasty - WBAT; post precaut Physician Instructions: Evaluate and Treat 04/11/25 16:37 Consult to [employer] - Direct Care Provider Routine Comment: Direct Care Provider Consult needed for:: Other reason (Comment) Comment: S/P LEFT Hip Hemiarthroplasty - may need rehab vs home Consult to Occupational Therapy Evaluate & Treat Comment: S/P LEFT Hip Hemiarthroplasty - WBAT; post precaut Physician Instructions: Evaluate and treat 04/13/25 13:18 Consult to Physical Therapy Evaluate & Treat Comment: L hip fracture Physician Instructions: Set up FWW for home use Discharge provider: Claire Sharp MD Summary Hospital Course Discharge Diagnosis: 1. Postoperative day 3 from left hip hemiarthroplasty for displaced femoral neck fracture 2. Coronary artery disease, chronic, stable 3. Hypertension, chronic, stable 4. Diabetes mellitus type 2, chronic, stable 5. Normocytic anemia Hospital Course: Patient was admitted on April 10, 2025 after a ground level fall while trying to clean the windows of his [employer] trach. He sustained a left hip fracture. He underwent a left scott arthroplasty on April 11, 2025. Postoperatively he had reasonable pain control and worked with therapies on mobility. He was adamantly opposed to going to a halfway facility for rehab so worked with physical therapy on caregiver training and was able to demonstrate the ability to navigate some skills he would need to do successfully in order to go home, such as stepping up and down 1 stair with assistance. Patient is discharged home in stable condition. Status at Discharge Cognitive/behavioral status at discharge: at baseline, oriented Functional status at discharge: uses cane/walker Overall status at discharge: patient is progressing back to baseline Time Spent with Patient Time spent: Less than 30 minutes Exam Vital Signs (past 8 hours): Oxygen Delivery Method Room Air Oxygen Flow Rate 0 Narrative Exam Narrative: GEN: Very pleasant elderly male, Alert and oriented x 3, NAD HEENT:NC, Face symmetric CHEST: Respiratory excursions symmetric, CTAB CV: RRR, no M/R/G ABD: Soft, NT/ND, BT present in all 4 quadrants, no organomegaly or masses EXTR: warm, well perfused, no C/C/E SKIN: warm and dry, no rash NEURO: Alert and oriented x 3, nonfocal Objective Labs 04/14/25 05:12 04/14/25 05:12 Labs: Laboratory Results - last 24 hr 04/14/25 04/14/25 04/14/25 05:12 07:56 11:47 WBC 9.7 RBC 4.55 Hgb 13.2 L Hct 39.0 L MCV 85.7 MCH 29.0 MCHC 33.9 RDW 14.3 Plt Count 207 Neut % (Auto) 71.3 Lymph % (Auto) 16.7 L [place] % (Auto) 8.8 Eos % (Auto) 2.7 Baso % (Auto) 0.5 Neut # (Auto) 6900 Lymph # (Auto) 1600 [place] # (Auto) 900 Eos # (Auto) 300 Baso # (Auto) 0 Sodium 135 L Potassium 3.6 Chloride 100 Carbon Dioxide 27 BUN 19 Creatinine 0.72 Estimated GFR > 60 BUN/Creatinine Ratio 26.4 H Glucose 105 H POC Whole Bld Glucose 100 H 110 H Calcium 8.7 PFSH Social History household members: spouse alcohol intake: current Discharge Plan Discharge Plan Patient Disposition: Home Health Service Provider Discharge Comment: You were admitted with a left hip fracture, for which you underwent a hemiarthroplasty. You will need 24 hour supervision at home. You have been referred to home health for therapies (PT and OT). You may weight bear as tolerated. You should take aspirin twice daily for prevention of blood clot. Return to the ED: fevers, chills, shortness of breath, redness around incision Inability to hold down food, fluids or medications Nursing Discharge Comment: may use ice off and on at 20 minute intervals. Do ankle waves/pumps 20x/hour to help with circulation. Discharge orders & Medications Prescriptions: New aspirin 81 mg Tablet,Delayed Release (Dr/Ec) 81 mg PO BID 28 Days Qty: 56 0RF oxycodone 5 mg Tablet 5 mg PO Q4HR PRN (Reason: Pain, Moderate (4-6)) Qty: 10 0RF Continued atorvastatin 80 mg tablet 80 mg PO QPM ketoconazole 2 % shampoo 1 applic topical Q14D pantoprazole 20 mg tablet,delayed release (DR/EC) 20 mg PO DAILY lisinopril 10 mg tablet 10 mg PO DAILY metoprolol succinate 25 mg tablet extended release 24 hr 25 mg PO DAILY ketoconazole 2 % cream 1 applic topical DAILY Glyxambi 25-5 mg tablet 1 tab PO DAILY ferrous sulfate 28 mg iron tablet 18 mg PO DAILY metoclopramide HCl [Reglan] 10 mg tablet 10 mg PO DAILY Discontinued aspirin [Daniel Low Dose Aspirin] 81 mg tablet,delayed release (DR/EC) 81 mg PO DAILY Diet/Activity/Treatments Diet: Diet as Tolerated and Regular Activity: As tolerated Oxygen: N/A Visit Report/Discharge Packet Instructions: DI for Hip Fracture Stand Alone Forms: Patient Portal/API, Stroke Signs & Symptoms, Surgery Discharge
== END 2025-04-14 15:39 | disposition home health service (06) | DRG 522 ==
LOC: ED 09:40 → AC 10:05
PROVIDERS: Family Medicine; Orthopaedic Surgery; Admitting Provider Hospitalist; Emergency Provider Emergency Medicine; Referring Provider Emergency Medicine; Visit Provider Hospitalist
PROC: 0SRS0JZ Replacement of Left Hip Joint, Femoral Surface with Synthetic Substitute, Open Approach (ICD-10-PCS; CPT 27125; principal; 2025-04-11 13:30)
DX: S72.002A Fracture of unspecified part of neck of left femur, initial encounter for closed fracture (principal); S50.312A Abrasion of left elbow, initial encounter; S60.812A Abrasion of left wrist, initial encounter; I25.10 Atherosclerotic heart disease of native coronary artery without angina pectoris; E11.9 Type 2 diabetes mellitus without complications; I10 Essential (primary) hypertension; D64.9 Anemia, unspecified; K21.9 Gastro-esophageal reflux disease without esophagitis; E78.5 Hyperlipidemia, unspecified; W18.30XA Fall on same level, unspecified, initial encounter; Z87.891 Personal history of nicotine dependence; Z95.1 Presence of aortocoronary bypass graft; Z79.84 Long term (current) use of oral hypoglycemic drugs; Z86.73 Personal history of transient ischemic attack (TIA), and cerebral infarction without residual deficits
CPT/HCPCS: 27236; 36415; 71045; 72170; 73080; 73502; 80048; 80053; 82962; 85025; 93005; 94762; 96374; 96375; 97116; 97162; 97165; 97530; 97535; 99233; 99284; C1776; C1713; J0666; J0690; J1100; J1171; J1644; J2405; J2704; J3010; J3475; J3490